=== PATIENT | female | born 1940 | race Hispanic/Latino ===

== ENCOUNTER 2019-01-10 00:42 | Inpatient (IN) | payer MEDICARE, OTHER ==
[2019-01-10] VITALS (8 sets, daily range): BP systolic 123–145; BP diastolic 57–65
[~2019-01-10] VITALS: Ht 154.9 cm; Wt 128.4 kg
[~2019-01-10 00:42] MED LIST: AMITIZA24 MCG PO; ASPIR 8181 MG PO; BUPROPION HCL200 MG PO; BYSTOLIC5 MG PO; CILOSTAZOL100 MG PO; CIPROFLOXACIN750 MG PO; CITALOPRAM HBR20 MG PO; FLORASTOR250 MG PO; FUROSEMIDE40 MG PO; GABAPENTIN300 MG PO; HYDROCODON-ACE1 EAC9 PO; KLOR-CON 1010 MEQ PO; LEVOTHYROXINE150 MCG PO; MECLIZINE HCL25 MG PO; METAXALONE800 MG PO; METRONIDAZOLE250 MG PO; NORCO 10-325 T1 EACH PO; NORCO 10MG-325MG1 EA PO; PRAVASTATIN SOD20 MG PO; PROMETHAZINE12.5 M1 PO; SKELAXIN800 MG PO; ULTRAM 50MG50 MG PO
--- OUTSIDE RECORDS SUMMARY | 2019-01-10 00:45 | XMS REPORT ---
Author Author [facility] Address Unknown Phone Unavailable Care Team Providers Care Automatic Thread Winder Name Role Phone Unavailable Unavailable Payers Payer Name Policy Type Policy Number Effective Date Expiration Date Problems This patient has no known problems. Allergies, Adverse Reactions, Alerts Allergy Name Allergy Type Status Severity Reaction(s) Onset Date Inactive Date Treating Clinician Comments meperidine HCl DA Active U 2013-01-17 00:00:00 Penicillins DA Active U 2013-01-17 00:00:00 morphine DA Active OK 2013-01-17 00:00:00 Medications This patient has no known medications.
[2019-01-10] MEDS ORDERED: ALBUTEROL SULF 0.083% NEB SOLN 3 ML NEB NEB STA (00:50)
[2019-01-10] MEDS ORDERED: ALBUTEROL SULF 0.083% NEB SOLN 3 ML NEB ONE (00:57)
[2019-01-10] MEDS ORDERED: IPRATROPIUM BROMIDE 0.02% 2.5 ML NEB ONE (00:58)
[2019-01-10] MEDS ORDERED: IPRATROPIUM BROMIDE 0.02% 2.5 ML NEB NEB ONE (01:00)
[2019-01-10] MEDS ORDERED: METHYLPREDNISOLONE SOD SUCC 125 MG/2ML VIAL IV ONE (01:00)
[2019-01-10 01:32] LABS: BASOPHILS % 0.1 % (0.0-1.0); HEMATOCRIT 33.8 % (34.2-44.1); HEMOGLOBIN 10.8 g/dL (12.0-16.0); LYMPHOCYTES # (AUTO) 0.7 (1.0-3.2); LYMPHOCYTES % 9.6 % (18.0-39.1); MEAN CORPUSCULAR HEMOGLOBIN 30.9 pg (28-32); MEAN CORPUSCULAR VOLUME 96.6 fL (81-99); MONOCYTES # (AUTO) 0.2 (0.2-0.8); MONOCYTES % 2.8 % (4.4-11.3); NEUTROPHILS # (AUTO) 6.6 (2.1-6.9); NEUTROPHILS % 86.7 % (38.7-80.0); PLATELET COUNT 250 x10e3/uL (140-360); RED CELL DISTRIBUTION WIDTH 13.2 % (11.7-14.4)
[2019-01-10 01:47] LABS: ALANINE AMINOTRANSFERASE 19 IU/L (0-55); ALBUMIN 2.8 g/dL (3.5-5.0); ALBUMIN/GLOBULIN RATIO 0.7 (0.8-2.0); ALKALINE PHOSPHATASE 112 IU/L (40-150); BLOOD UREA NITROGEN 19 mg/dL (7-26); BUN/CREATININE RATIO 16 (6-25); CALCIUM 9.5 mg/dL (8.4-10.2); CARBON DIOXIDE 29 mmol/L (22-29); CHLORIDE 99 mmol/L (98-107); CREATINE KINASE 190 IU/L (29-168); CREATININE, SERUM 1.16 mg/dL (0.57-1.11); EST GLOMERULAR FILTRATION RATE 45 ML/MIN (60-); GLUCOSE 220 mg/dL (74-118); SODIUM 137 mmol/L (136-145)
--- NOTE | 2019-01-10 01:50 | Diagnostic Imaging Report ---
EXAMINATION: CHEST SINGLE (PORTABLE) INDICATION: ^sob ^[id number] ^0110 ^Y COMPARISON: None FINDINGS: AP view TUBES and LINES: None. LUNGS: Limited by body habitus and low lung volumes. Mildly prominent interstitial lung markings. PLEURA: No significant pleural effusion or pneumothorax. HEART AND MEDIASTINUM: The cardiac silhouette is enlarged on this AP view. BONES AND SOFT TISSUES: No acute osseous lesion. Right humeral head anchor screws. Soft tissues are unremarkable. UPPER ABDOMEN: No free air under the diaphragm. IMPRESSION: Limited as above. Mildly prominent interstitial lung markings, accentuated by lower volumes, suggestive of mild interstitial edema. Signed by: Dr. Sukhi Peterson MD on 01/10/2019 1:47 AM
--- NOTE | 2019-01-10 03:10 | Diagnostic Imaging Report ---
EXAM: CT Chest WITHOUT contrast INDICATION: ^EVAL FRO PULMONARY EDEMA ^[id number] ^0220 ^Y COMPARISON: Same day chest x-ray TECHNIQUE: Chest was scanned utilizing a multidetector helical scanner from the lung apex through the level of the adrenal glands without administration of IV contrast. Absence of intravenous contrast decreases sensitivity for detection of lymphadenopathy and vascular pathology. Coronal and sagittal reformations were obtained. Routine protocol was performed. IV CONTRAST: None COMPLICATIONS: None RADIATION DOSE: Total DLP: 485.28 mGy*cm Estimated effective dose: (DLP x 0.014 x size factor) mSv CTDIvol has been reviewed. It is below the limits set by the Radiation Protocol Committee (RPC). FINDINGS: LINES/ TUBES: None. LUNGS AND AIRWAYS: Small multifocal bilateral upper lobe airspace opacities, right greater than left. Mild vascular congestion. Mild bibasilar consolidations. Airways are normal. PLEURA: Trace right pleural effusion. HEART AND MEDIASTINUM: The thyroid gland is normal. No mediastinal, hilar or axillary lymphadenopathy. The heart is borderline in size.. There is no pericardial effusion. Main pulmonary artery measures 2.5 cm posterior cerebral pulmonary hypertension. Coronary artery calcifications with stents in place. UPPER ABDOMEN: Small hiatal hernia. Atrophic pancreas. BONES: Advanced degenerative changes of the right shoulder with right humeral head anchor screws in place. Degenerative changes of thoracic spine. SOFT TISSUES: Unremarkable. IMPRESSION: Small bilateral upper lobe patchy airspace opacities, right greater than left, concerning for multifocal developing pneumonia. Mild pulmonary vascular congestion. Enlarged main pulmonary artery. Trace right pleural effusion. Bibasilar mild consolidations, likely atelectasis. Underlying pneumonia cannot be entirely excluded. Signed by: Dr. Sukhi Peterson MD on 01/10/2019 3:07 AM
[2019-01-10] MEDS: ALBUTEROL SULF 0.083% NEB SOLN 3 ML NEB NEB SCH ×6 (03:30→23:30)
[2019-01-10] MEDS ORDERED: DEXTROSE 50% SYRINGE 50 ML IV PRN (03:30)
[2019-01-10] MEDS: AZITHROMYCIN 500MG/NS 250 ML 250 ML IV SCH (03:30)
[2019-01-10] MEDS: CEFTRIAXONE SOD 1 GM/NS 50 ML 50 ML IV SCH (04:19)
[2019-01-10] MEDS ORDERED: IPRATROPIUM BROMIDE 0.02% 2.5 ML NEB NEB SCH (06:00)
[2019-01-10] MEDS: SODIUM CHLORIDE 0.9% 1000ML 1,000 ML IV SCH ×2 (06:00→12:52)
--- NOTE | 2019-01-10 06:10 | NUR ---
Patient received via stretcher from ER. AAO x 4. Patient had no complaints of pain except coughing occasionally. Respiration even and non-labored. Admission history obtained. Initial physical assessment performed. IVF infusing at 125 cc/hr. Patient oriented to room, call light and plan of care. Fall precautions implemented. Patient instructed to call for assistance when needed. Call light within reach.
--- NOTE | 2019-01-10 06:24 | NUR ---
Dr. Trina Rivera paged regarding "Routine Consult". Reason: Multifocal Pneumonia. Awaiting call back.
--- NOTE | 2019-01-10 07:00 | NUR ---
BEDSIDE SHIFT REPORT FROM NIGHT RN. PT DENIES NEEDS AT THIS TIME.
[2019-01-10] MEDS ORDERED: FOLGARD TABLET1 EAC1 PO (07:21)
[2019-01-10] MEDS ORDERED: MYRBETRIQ50 MG PO (07:21)
[2019-01-10] MEDS ORDERED: LOSARTAN POTAS100 MG PO (07:21)
[2019-01-10] MEDS: INSULIN REGULAR, HUMAN 100 UNIT/1 ML 3ML VIAL SQ SCH ×4 (08:18→19:53)
[2019-01-10 09:44] LABS: CREATINE KINASE MB 1.8 ng/mL (0-5.0)
[2019-01-10 10:00] LABS: FREE THYROXINE INDEX 1.9182 (1.4-3.8); THYROID STIMULATING HORMONE 0.731 uIU/mL (0.350-4.940)
[2019-01-10] MEDS: TRAMADOL/APAP 37.5MG-325MG TAB PO PRN (10:21)
[2019-01-10] MEDS: IPRATROPIUM BROMIDE 0.02% 2.5 ML NEB NEB SCH ×4 (10:30→23:00)
[2019-01-10] MEDS: GABAPENTIN 300 MG CAP PO SCH ×2 (11:48→20:33)
[2019-01-10] MEDS: ASPIRIN 81 MG CHEW TAB PO SCH (11:48)
[2019-01-10] MEDS: CITALOPRAM HYDROBROMIDE 20 MG TAB PO SCH (11:48)
[2019-01-10] MEDS: PREDNISONE 20 MG TAB PO SCH ×2 (11:48→17:24)
--- NOTE | 2019-01-10 16:22 | Diagnostic Imaging Report ---
EXAM: US ABDOMEN COMPLETE DATE: 01/10/2019 12:00 AM INDICATION: Abdominal pain COMPARISON: None TECHNIQUE: Transverse and longitudinal ruano scale and color doppler sonographic images of the upper abdomen were obtained. FINDINGS: There is no evidence of fluid or masses seen in the area of clinical concern in the right lower quadrant. LIVER 13.9 cm in the right midclavicular line. Normal echogenicity of the liver with normal contour, no masses. SPLEEN 10.8 cm in maximum diameter. Normal echogenicity, no masses. GALLBLADDER Status post cholecystectomy. BILE DUCTS No intra nor extra-hepatic biliary dilation. Common bile duct measures 3 mm PANCREAS: Not well visualized due to overlying bowel gas. RIGHT KIDNEY: 10.8 cm Echogenicity: Normal Collecting System: No hydronephrosis Stones: None Cyst/Mass: None LEFT KIDNEY: 9.9 cm Echogenicity: Normal Collecting System: No hydronephrosis Stones: None Cyst/Mass: None VESSELS: Aorta: Not well-visualized due to overlying bowel gas. Inferior Vena Cava: Visualized portions are normal Main Portal Vein: 0.9 cm, normal size with hepatopetal flow. FREE FLUID: None IMPRESSION: Status post cholecystectomy. No renal calculi or hydronephrosis. Signed by: Caren Mccloud MD on 01/10/2019 4:19 PM
--- NOTE | 2019-01-10 16:24 | Diagnostic Imaging Report ---
Exam: Pelvic ultrasound. History: Abdominal pain Comparison: Abdominal ultrasound of the same day. Findings/Impression: Transabdominal grayscale and color Doppler pelvic ultrasound. Status post hysterectomy. No remarkable findings in the right or left adnexa. Signed by: Caren Mccloud MD on 01/10/2019 4:21 PM
--- NOTE | 2019-01-10 16:55 | Consultation ---
DATE OF CONSULTATION: Pulmonary Consultation This is a patient of Dr. Tomás Bonds and Dr. Tha Bradford. HISTORY OF PRESENT ILLNESS: This is a 78-year-old woman with a history of asthma in 1996, which resolved until current illness which began 7 days ago with cough productive of green sputum. History of remote uterine cancer. History of pain under the left ribs when she coughs and tenderness presumed to be a fracture. ALLERGIES: CODEINE AND MORPHINE. MEDICATIONS: She cannot recall, but according to record include: 1. Aspirin. 2. Pletal. 3. Losartan. 4. Celexa. 5. Lasix. 6. Neurontin. 7. Pravachol. 8. Levoxyl. 9. Lasix. 10. Potassium. 11. Vitamin D. PAST SURGICAL HISTORY: She has had hysterectomy for cancer, shoulder replacement, knee replacements, hysterectomy and gallbladder surgery. 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 Nonsmoker. No alcohol. Born in [place], [place]. FAMILY HISTORY: Positive for heart failure and sick sinus syndrome. PHYSICAL EXAMINATION: GENERAL: She is a moderately obese white female in no acute distress, complaining of pain at the left rib. VITAL SIGNS: Temperature 98.6, pulse 88, blood pressure 123/57. HEAD: Normocephalic and atraumatic. NECK: Trachea midline, wheezing all lung golden. HEART: Regular rhythm. ABDOMEN: Nontender. CHEST: She has tender rib 11th rib, left chest wall. IMPRESSION: 1. Acute community-acquired pneumonia. 2. Cough. 3. Asthma. 4. Fractured rib. PLAN: Therapy of pneumonia and asthma. Bronchodilators, corticosteroids, and antibiotic therapy. Thank you for this kind referral. MD SANDY Morse/GRAYSON /[id number]
[2019-01-10] MEDS: CILOSTAZOL 100 MG TAB PO SCH (17:24)
--- NOTE | 2019-01-10 18:15 | History and Physical ---
Ms. Vu is a pleasant 78-year-old woman, who presented to the emergency room in the evening of the with a complaint of cough and sputum production. HISTORY OF PRESENT ILLNESS: The patient reports that she has been ill for a few days and visited with Dr. Bradford, in his office on the where he gave her injections probably an antibiotic and steroid, but evidently insurances were told refused to pay for breathing treatments. PAST MEDICAL HISTORY: Significant for adult asthma. She also has type 2 adult onset diabetes. She has been told that she has anemia in the past, but evidently told that she needed to take vitamin B12. PAST SURGICAL HISTORY: Includes bilateral knee replacements and pelvic repair. She had hysterectomy for uterine cancer by her report. HOME MEDICATIONS: Please see the chart. PERSONAL AND SOCIAL HISTORY: She does not smoke or drink. REVIEW OF SYSTEMS: CARDIAC: She does not know of any cardiac problem. No chest pains. Currently, her left side hurts to cough. PHYSICAL EXAMINATION: GENERAL: At this time shows a pleasant, obese woman, who is about 5 feet 1 inch tall and weighing 284 pounds. VITAL SIGNS: Blood pressure 123/57, pulse 88 and regular. HEAD, EYES, EARS, NOSE, AND THROAT: Unremarkable. NECK: Thick. THORAX: Heart sounds S1 and S2 are equal. No distinct murmur. LUNGS: Have faint rhonchi and wheezing. ABDOMEN: Markedly protuberant. Normal bowel sounds. Nontender. EXTREMITIES: No cyanosis, clubbing, or edema. LABORATORY DATA: Chest x-ray and CAT scan of the chest suggest possibility of multifocal pneumonia with bilateral upper lobe opacities. BNP is 15, hemoglobin 10.8, serum iron 33, saturation 10%, and glucose 220. ASSESSMENT: 1. Pneumonia. 2. Type 2 adult onset diabetes. 3. Anemia. PLAN: Broad-spectrum antibiotics with bronchodilators. We will ask for consultation with Pulmonary, Dr. Rivera and also help for the anemia from Dr. Hernandez. MD MARGAUX Abreu/PRABHAL /[id number] cc: Tomas A MaryMD Tha avendaño MD David Stein, MD
[2019-01-10] MEDS: BUDESONIDE/FORMOTEROL 160/4.5MCG INHALER INH SCH (19:00)
[2019-01-10 19:06] LABS: CREATINE KINASE MB 1.8 ng/mL (0-5.0)
[2019-01-10] MEDS: PRAVASTATIN 20 MG TAB PO SCH (20:33)
[2019-01-11] VITALS (8 sets, daily range): BP systolic 131–160; BP diastolic 65–76
[2019-01-11] MEDS: TRAMADOL/APAP 37.5MG-325MG TAB PO PRN ×3 (00:38→20:41)
[2019-01-11] MEDS: SODIUM CHLORIDE 0.9% 1000ML 1,000 ML IV SCH ×2 (02:12→15:32)
[2019-01-11] MEDS: IPRATROPIUM BROMIDE 0.02% 2.5 ML NEB NEB SCH ×6 (03:00→23:20)
[2019-01-11] MEDS: ALBUTEROL SULF 0.083% NEB SOLN 3 ML NEB NEB SCH ×6 (03:30→23:20)
[2019-01-11] MEDS: AZITHROMYCIN 500MG/NS 250 ML 250 ML IV SCH (03:35)
--- NOTE | 2019-01-11 04:22 | NUR ---
PATIENT COMPLAIN OF LEFT ABDOMINAL PAIN. PAIN MEDICATION IS STILL NOT DUE. DR. SINGH NOTIFIED. NEW ORDERS RECEIVED.
[2019-01-11] MEDS: CEFTRIAXONE SOD 1 GM/NS 50 ML 50 ML IV SCH (04:24)
[2019-01-11] MEDS: ACETAMINOPHEN 325 MG TAB PO PRN ×2 (04:47→23:40)
[2019-01-11 06:01] LABS: BASOPHILS % 0.1 % (0.0-1.0); HEMATOCRIT 33.3 % (34.2-44.1); HEMOGLOBIN 10.5 g/dL (12.0-16.0); LYMPHOCYTES # (AUTO) 0.9 (1.0-3.2); LYMPHOCYTES % 9.7 % (18.0-39.1); MEAN CORPUSCULAR HGB CONC 31.5 g/dL (31-35); MEAN CORPUSCULAR VOLUME 98.2 fL (81-99); MONOCYTES # (AUTO) 0.4 (0.2-0.8); MONOCYTES % 4.2 % (4.4-11.3); NEUTROPHILS % 85.5 % (38.7-80.0); PLATELET COUNT 254 x10e3/uL (140-360); RED BLOOD COUNT 3.39 x10e6/uL (3.6-5.1); RED CELL DISTRIBUTION WIDTH 13.4 % (11.7-14.4)
[2019-01-11] MEDS: LEVOTHYROXINE SODIUM 125 MCG TAB PO SCH (06:23)
[2019-01-11 06:28] LABS: ALBUMIN 2.9 g/dL (3.5-5.0); ALBUMIN/GLOBULIN RATIO 0.7 (0.8-2.0); ANION GAP 13.3 mmol/L (8-16); CALCIUM 9.4 mg/dL (8.4-10.2); CREATININE, SERUM 1.04 mg/dL (0.57-1.11); POTASSIUM 4.3 mmol/L (3.5-5.1)
--- NOTE | 2019-01-11 07:00 | NUR ---
BEDSIDE SHIFT REPORT FROM NIGHT RN. PT DENIES NEEDS AT THIS TIME.
[2019-01-11] MEDS: BUDESONIDE/FORMOTEROL 160/4.5MCG INHALER INH SCH ×2 (07:25→19:50)
[2019-01-11] MEDS: ASPIRIN 81 MG CHEW TAB PO SCH (08:13)
[2019-01-11] MEDS: CITALOPRAM HYDROBROMIDE 20 MG TAB PO SCH (08:13)
[2019-01-11] MEDS: LOSARTAN POTASSIUM 100 MG TAB PO SCH (08:14)
[2019-01-11] MEDS: GABAPENTIN 300 MG CAP PO SCH ×2 (08:14→20:41)
[2019-01-11] MEDS: BUPROPION HCL 200 MG PO SCH (08:14)
[2019-01-11] MEDS: CILOSTAZOL 100 MG TAB PO SCH ×2 (08:14→17:54)
[2019-01-11] MEDS: PREDNISONE 20 MG TAB PO SCH ×2 (08:14→17:54)
[2019-01-11] MEDS: INSULIN REGULAR, HUMAN 100 UNIT/1 ML 3ML VIAL SQ SCH ×4 (08:15→20:45)
[2019-01-11] MEDS ORDERED: LEVOTHYROXINE SODIUM 0.125 MCG PO SCH (09:00)
[2019-01-11] MEDS ORDERED: VANCOMYCIN 1GM/NS 250 ML 250 ML IV ONE (13:45)
[2019-01-11] MEDS: VANCOMYCIN 1GM/NS 250 ML 250 ML IV SCH (16:00)
[2019-01-11] MEDS: PRAVASTATIN 20 MG TAB PO SCH (20:41)
--- NOTE | 2019-01-11 22:17 | Consultation ---
DATE OF CONSULTATION: REASON FOR CONSULTATION: Bacteremia, pneumonia. HISTORY OF PRESENT ILLNESS: This patient, who is a very pleasant 78-year-old white female, history of obesity, history of diabetes mellitus, hypertension, and hypothyroidism. The patient comes in with one week of fever, chills, productive cough, getting progressively worse. She took some oral antibiotic as outpatient without any improvement, so she came here. The patient was admitted. Her blood cultures, gram-positive cocci, so I am asked to see her. She already seen by Pulmonary. PAST MEDICAL HISTORY: She had uterine cancer status post hysterectomy, osteoarthritis, shoulder replacement, total knee replacement, hysterectomy, cholecystectomy, morbidly obese patient, asthma, diabetes mellitus, and anemia of chronic disease. PAST SURGICAL HISTORY: As above. ALLERGIES: PENICILLIN AND CODEINE. SOCIAL HISTORY: No smoking, drug abuse, or alcohol abuse. FAMILY HISTORY: Hypertension and diabetes. LABORATORY DATA: White count 7.58 and hemoglobin 10.8. Her sodium 140, potassium 4.3, and creatinine 1.40. Her CT of the chest showed she had bilateral upper lobe patchy pneumonia, right greater than left, multifocal developing pneumonia. MEDICATION LIST: She is on insulin, Atrovent, Cozaar, Neurontin, prednisone, Celexa, levothyroxine, ceftriaxone, and azithromycin. REVIEW OF SYSTEMS: Besides the cough, fever, chills, not feeling well and chronic aches and pain in her knees, she denies any pain. PHYSICAL EXAMINATION: GENERAL: Alert and oriented. Does not seem to be in acute distress. VITAL SIGNS: Stable, currently afebrile. HEENT: Not icteric. NECK: Supple. CHEST: Few crackles at the bases. COR: S1 and S2. ABDOMEN: Soft and obese. EXTREMITIES: No edema. IMPRESSION: 1. Community-acquired pneumonia, severe. 2. Multifocal pneumonia. 3. Bacteremia gram-positive cocci could be the pathogen of the pneumonia versus contamination. 4. Morbidly obese patient. 5. History of hypertension, history of diabetes. Agree with Rocephin and azithromycin. We will add vancomycin until we get identification of the bacteria. We will follow with you. Further recommendations pending what kind of bacteria we have in the blood. Continue with above treatment. 6. Asthma from obesity from diabetes mellitus. 7. Concern about congestive heart failure component. Cardiology is following. Pulmonary is following. MD MAYTE Noel /[id number]
[2019-01-12] VITALS (8 sets, daily range): BP systolic 127–170; BP diastolic 60–74
[2019-01-12] MEDS: CEFTRIAXONE SOD 1 GM/NS 50 ML 50 ML IV SCH (02:55)
[2019-01-12] MEDS: TRAMADOL/APAP 37.5MG-325MG TAB PO PRN (03:05)
[2019-01-12] MEDS: IPRATROPIUM BROMIDE 0.02% 2.5 ML NEB NEB SCH ×6 (03:15→23:09)
[2019-01-12] MEDS: ALBUTEROL SULF 0.083% NEB SOLN 3 ML NEB NEB SCH ×6 (03:15→23:09)
[2019-01-12] MEDS: AZITHROMYCIN 500MG/NS 250 ML 250 ML IV SCH (03:36)
[2019-01-12] MEDS: SODIUM CHLORIDE 0.9% 1000ML 1,000 ML IV SCH ×3 (03:38→18:00)
[2019-01-12] MEDS: VANCOMYCIN 1GM/NS 250 ML 250 ML IV SCH ×2 (04:27→16:50)
[2019-01-12] MEDS: LEVOTHYROXINE SODIUM 125 MCG TAB PO SCH (05:22)
--- NOTE | 2019-01-12 07:00 | NUR ---
BEDSIDE SHIFT REPORT FROM NIGHT RN. PT DENIES NEEDS AT THIS TIME.
[2019-01-12] MEDS: BUDESONIDE/FORMOTEROL 160/4.5MCG INHALER INH SCH ×2 (07:11→19:35)
[2019-01-12] MEDS: INSULIN REGULAR, HUMAN 100 UNIT/1 ML 3ML VIAL SQ SCH ×4 (08:24→21:13)
[2019-01-12] MEDS: ASPIRIN 81 MG CHEW TAB PO SCH (08:58)
[2019-01-12] MEDS: CITALOPRAM HYDROBROMIDE 20 MG TAB PO SCH (08:58)
[2019-01-12] MEDS: BUPROPION HCL 200 MG PO SCH (08:59)
[2019-01-12] MEDS: LOSARTAN POTASSIUM 100 MG TAB PO SCH (08:59)
[2019-01-12] MEDS: GABAPENTIN 300 MG CAP PO SCH ×2 (08:59→21:13)
[2019-01-12] MEDS: PREDNISONE 20 MG TAB PO SCH ×2 (08:59→17:04)
[2019-01-12] MEDS: CILOSTAZOL 100 MG TAB PO SCH ×2 (08:59→16:51)
[2019-01-12] MEDS: BENZONATATE 100 MG CAP PO PRN (13:18)
[2019-01-12] MEDS: MAGNESIUM HYDROXIDE 30 ML UDC PO PRN (13:39)
--- NOTE | 2019-01-12 16:05 | NUR ---
Visit made by the Spiritual Care Department Pastoral Visitor, Wilfredo Arcos. PV provided pastoral presence, hospitality, and supportive listening. Pastoral Visitor informed pt/family of the scope of [employer] and availability. YUVAL ALEXANDER Forming Machine Upkeep Mechanic Helper Spiritual Care Department O: [phone] Pager: [phone] ([phone] number calling from)
[2019-01-12] MEDS: DOCUSATE SODIUM 100 MG CAP PO SCH (16:51)
[2019-01-12] MEDS ORDERED: CITRATE OF MAGNESIA 300ML BOTTLE PO PRN (17:00)
[2019-01-12] MEDS: PRAVASTATIN 20 MG TAB PO SCH (21:13)
[2019-01-13] VITALS (8 sets, daily range): BP systolic 126–154; BP diastolic 62–71
[2019-01-13] MEDS: ACETAMINOPHEN 325 MG TAB PO PRN (00:02)
[2019-01-13] MEDS: BENZONATATE 100 MG CAP PO PRN ×3 (00:02→22:03)
[2019-01-13] MEDS: CEFTRIAXONE SOD 1 GM/NS 50 ML 50 ML IV SCH (02:57)
[2019-01-13] MEDS: ALBUTEROL SULF 0.083% NEB SOLN 3 ML NEB NEB SCH ×5 (03:15→23:25)
[2019-01-13] MEDS: IPRATROPIUM BROMIDE 0.02% 2.5 ML NEB NEB SCH ×6 (03:15→23:25)
[2019-01-13] MEDS: AZITHROMYCIN 500MG/NS 250 ML 250 ML IV SCH (03:31)
[2019-01-13] MEDS: VANCOMYCIN 1GM/NS 250 ML 250 ML IV SCH ×2 (04:30→17:15)
[2019-01-13] MEDS: LEVOTHYROXINE SODIUM 125 MCG TAB PO SCH (05:11)
--- NOTE | 2019-01-13 07:00 | NUR ---
BEDSIDE SHIFT REPORT RECEIVED FROM THE SENIOR MOBILE DEVELOPER RN. EDUCATED PT ABOUT FALL PRECAUTIONS. SIDE RAILS X 2. CALL LIGHT WITH IN EASY REACH. INSTRUCTED PT TO USE CALL LIGHT FOR ALL NEEDS. PT VERBALIZED UNDERSTANDING. PT DENIES NEEDS AT THIS TIME.
[2019-01-13] MEDS: BUDESONIDE/FORMOTEROL 160/4.5MCG INHALER INH SCH ×2 (07:10→19:52)
[2019-01-13] MEDS: INSULIN REGULAR, HUMAN 100 UNIT/1 ML 3ML VIAL SQ SCH ×4 (07:30→21:00)
[2019-01-13] MEDS: SODIUM CHLORIDE 0.9% 1000ML 1,000 ML IV SCH ×2 (07:32→22:03)
[2019-01-13] MEDS: CITALOPRAM HYDROBROMIDE 20 MG TAB PO SCH (08:19)
[2019-01-13] MEDS: ASPIRIN 81 MG CHEW TAB PO SCH (08:19)
[2019-01-13] MEDS: GABAPENTIN 300 MG CAP PO SCH ×2 (08:20→21:00)
[2019-01-13] MEDS: LOSARTAN POTASSIUM 100 MG TAB PO SCH (08:20)
[2019-01-13] MEDS: DOCUSATE SODIUM 100 MG CAP PO SCH ×2 (08:20→17:15)
[2019-01-13] MEDS: CILOSTAZOL 100 MG TAB PO SCH ×2 (08:21→17:15)
[2019-01-13] MEDS: PREDNISONE 20 MG TAB PO SCH ×2 (08:21→17:15)
[2019-01-13] MEDS: BUPROPION HCL 200 MG PO SCH (08:23)
[2019-01-13] MEDS: GUAIFENESIN 200 MG/10 ML UDC PO PRN (08:31)
[2019-01-13] MEDS: MAGNESIUM HYDROXIDE 30 ML UDC PO PRN (08:31)
--- NOTE | 2019-01-13 16:34 | Progress Note ---
DATE: SUBJECTIVE: Ms. Vu is feeling better. No complaint. REVIEW OF SYSTEMS: HEENT: Negative. PULMONARY: Negative. CARDIAC: Negative. PHYSICAL EXAMINATION: GENERAL: She is currently alert, oriented, does not seem in acute distress. VITAL SIGNS: Stable, currently afebrile. The patient is morbidly obese. CHEST: Clear bilateral. COR: S1, S2. No S3, S4, or murmur. ABDOMEN: Soft. IMPRESSION AND PLAN: Pneumonia, community acquired, severe, clinically better, can switch to oral antibiotic in the morning. We will give her oral Levaquin 750 p.o. daily for 5 days. Follow up as an outpatient. MD ISAK Noel/GRAYSON /[id number]
--- NOTE | 2019-01-13 19:00 | NUR ---
BEDSIDE SHIFT REPORT GIVEN TO THE CREDIT COMPLIANCE OFFICER RN. PT DENIES NEEDS AT THIS TIME.
[2019-01-13] MEDS: PRAVASTATIN 20 MG TAB PO SCH (21:00)
[2019-01-14] VITALS (8 sets, daily range): BP systolic 135–172; BP diastolic 58–70
[2019-01-14] MEDS: CEFTRIAXONE SOD 1 GM/NS 50 ML 50 ML IV SCH (02:53)
[2019-01-14] MEDS: ALBUTEROL SULF 0.083% NEB SOLN 3 ML NEB NEB SCH ×6 (03:22→23:20)
[2019-01-14] MEDS: IPRATROPIUM BROMIDE 0.02% 2.5 ML NEB NEB SCH ×6 (03:22→23:20)
[2019-01-14] MEDS: AZITHROMYCIN 500MG/NS 250 ML 250 ML IV SCH (04:10)
[2019-01-14] MEDS: BENZONATATE 100 MG CAP PO PRN (04:46)
[2019-01-14] MEDS: VANCOMYCIN 1GM/NS 250 ML 250 ML IV SCH ×2 (05:51→15:40)
[2019-01-14] MEDS: LEVOTHYROXINE SODIUM 125 MCG TAB PO SCH (05:54)
[2019-01-14] MEDS: BUDESONIDE/FORMOTEROL 160/4.5MCG INHALER INH SCH ×2 (07:00→20:05)
--- NOTE | 2019-01-14 07:00 | NUR ---
BEDSIDE SHIFT REPORT RECEIVED FROM THE BILINGUAL LOAN PROCESSOR RN. EDUCATED PT ABOUT FALL PRECAUTIONS. SIDE RAILS X 2. CALL LIGHT WITH IN EASY REACH. INSTRUCTED PT TO USE CALL LIGHT FOR ALL NEEDS. PT VERBALIZED UNDERSTANDING. PT DENIES NEEDS AT THIS TIME.
[2019-01-14] MEDS: INSULIN REGULAR, HUMAN 100 UNIT/1 ML 3ML VIAL SQ SCH ×4 (08:30→21:12)
[2019-01-14] MEDS: CILOSTAZOL 100 MG TAB PO SCH ×2 (08:36→16:45)
[2019-01-14] MEDS: LOSARTAN POTASSIUM 100 MG TAB PO SCH (08:36)
[2019-01-14] MEDS: ASPIRIN 81 MG CHEW TAB PO SCH (08:36)
[2019-01-14] MEDS: CITALOPRAM HYDROBROMIDE 20 MG TAB PO SCH (08:36)
[2019-01-14] MEDS: GABAPENTIN 300 MG CAP PO SCH ×2 (08:36→21:12)
[2019-01-14] MEDS: BUPROPION HCL 200 MG PO SCH (08:36)
[2019-01-14] MEDS: DOCUSATE SODIUM 100 MG CAP PO SCH ×2 (08:36→16:45)
[2019-01-14] MEDS: SODIUM CHLORIDE 0.9% 1000ML 1,000 ML IV SCH (08:37)
[2019-01-14] MEDS: PREDNISONE 20 MG TAB PO SCH ×2 (08:37→16:45)
--- NOTE | 2019-01-14 19:00 | NUR ---
BEDSIDE SHIFT REPORT GIVEN TO THE GREEN CHAIN WORKER RN. PT DENIED FURTHER NEEDS
[2019-01-14] MEDS: PRAVASTATIN 20 MG TAB PO SCH (21:12)
[2019-01-14] MEDS: GUAIFENESIN 200 MG/10 ML UDC PO PRN (21:54)
[2019-01-15] VITALS (8 sets, daily range): BP systolic 129–150; BP diastolic 60–71
[2019-01-15] MEDS: ALBUTEROL SULF 0.083% NEB SOLN 3 ML NEB NEB SCH ×6 (03:30→23:38)
[2019-01-15] MEDS: CEFTRIAXONE SOD 1 GM/NS 50 ML 50 ML IV SCH (03:30)
[2019-01-15] MEDS: IPRATROPIUM BROMIDE 0.02% 2.5 ML NEB NEB SCH ×6 (03:30→23:38)
[2019-01-15] MEDS: VANCOMYCIN 1GM/NS 250 ML 250 ML IV SCH (04:00)
[2019-01-15] MEDS: AZITHROMYCIN 500MG/NS 250 ML 250 ML IV SCH (04:20)
[2019-01-15] MEDS: SODIUM CHLORIDE 0.9% 1000ML 1,000 ML IV SCH (04:21)
[2019-01-15] MEDS: LEVOTHYROXINE SODIUM 125 MCG TAB PO SCH (05:17)
--- NOTE | 2019-01-15 06:09 | NUR ---
Dr. Moe called and message left with answering service regarding vanc trough
[2019-01-15] MEDS: BUDESONIDE/FORMOTEROL 160/4.5MCG INHALER INH SCH ×2 (07:25→20:20)
[2019-01-15] MEDS: INSULIN REGULAR, HUMAN 100 UNIT/1 ML 3ML VIAL SQ SCH ×4 (07:30→21:09)
[2019-01-15] MEDS: ASPIRIN 81 MG CHEW TAB PO SCH (08:35)
[2019-01-15] MEDS: DOCUSATE SODIUM 100 MG CAP PO SCH ×2 (08:35→17:00)
[2019-01-15] MEDS: LOSARTAN POTASSIUM 100 MG TAB PO SCH (08:35)
[2019-01-15] MEDS: CITALOPRAM HYDROBROMIDE 20 MG TAB PO SCH (08:35)
[2019-01-15] MEDS: PREDNISONE 20 MG TAB PO SCH (08:36)
[2019-01-15] MEDS: CILOSTAZOL 100 MG TAB PO SCH ×2 (08:36→17:00)
[2019-01-15] MEDS: GABAPENTIN 300 MG CAP PO SCH ×2 (08:36→21:09)
[2019-01-15] MEDS: BUPROPION HCL 200 MG PO SCH (08:36)
--- NOTE | 2019-01-15 11:30 | NUR ---
Spoke with Dr. Bonds regarding dc plan. States pt still had crackles today. Will discharge once cleared by pulmonology. Dr. Fagan still to round today.
--- NOTE | 2019-01-15 12:15 | NUR ---
IMM letter delivered and explained to pt. She verbalized understanding. Signed copy placed in chart. Copy to pt's transition of care folder. Business card given to pt. CM contact information written on board.
[2019-01-15] MEDS ORDERED: VANCOMYCIN 1GM/NS 250 ML 250 ML IV SCH ×3 (16:00)
[2019-01-15] MEDS ORDERED: VANCOMYCIN HCL 1.25 GM in SODIUM CHLORIDE 0.9% 250ML 300 ML IV SCH (16:00)
[2019-01-15] MEDS ORDERED: VANCOMYCIN HCL 1.25 GM in SODIUM CHLORIDE 0.9% 250ML 250 ML IV SCH (16:00)
--- NOTE | 2019-01-15 16:00 | NUR ---
Spoke to Dr. Fagan who states he wants to keep pt one more day for IV abx.
[2019-01-15] MEDS: PRAVASTATIN 20 MG TAB PO SCH (21:09)
[2019-01-16] VITALS: BP 131/60
[2019-01-16] MEDS: ALBUTEROL SULF 0.083% NEB SOLN 3 ML NEB NEB SCH ×3 (03:15→11:49)
[2019-01-16] MEDS: IPRATROPIUM BROMIDE 0.02% 2.5 ML NEB NEB SCH ×3 (03:15→11:49)
[2019-01-16 04:00] VITALS: BP 137/61
--- NOTE | 2019-01-16 04:20 | NUR ---
IV no longer patent, new 20g IV started to left hand
[2019-01-16] MEDS: CEFTRIAXONE SOD 1 GM/NS 50 ML 50 ML IV SCH (04:23)
[2019-01-16] MEDS: LEVOTHYROXINE SODIUM 125 MCG TAB PO SCH (06:27)
[2019-01-16] MEDS: BUDESONIDE/FORMOTEROL 160/4.5MCG INHALER INH SCH (07:15)
[2019-01-16] MEDS: INSULIN REGULAR, HUMAN 100 UNIT/1 ML 3ML VIAL SQ SCH ×2 (07:30→11:07)
[2019-01-16 07:43] VITALS: BP 178/77
[2019-01-16 07:48] VITALS: BP 178/77
[2019-01-16] MEDS: DOCUSATE SODIUM 100 MG CAP PO SCH (08:45)
[2019-01-16] MEDS: CITALOPRAM HYDROBROMIDE 20 MG TAB PO SCH (08:45)
[2019-01-16] MEDS: ASPIRIN 81 MG CHEW TAB PO SCH (08:45)
[2019-01-16] MEDS: PREDNISONE 20 MG TAB PO SCH (08:46)
[2019-01-16] MEDS: BUPROPION HCL 200 MG PO SCH (08:46)
[2019-01-16] MEDS: GABAPENTIN 300 MG CAP PO SCH (08:46)
[2019-01-16] MEDS: LOSARTAN POTASSIUM 100 MG TAB PO SCH (08:46)
[2019-01-16] MEDS: CILOSTAZOL 100 MG TAB PO SCH (08:46)
[2019-01-16 11:37] VITALS: BP 135/62
[2019-01-16] MEDS ORDERED: LEVAQUIN500 MG PO (13:31)
--- NOTE | 2019-01-16 14:05 | NUR ---
patient alert and oriented. discharge instructions given at this time, patient verbalized understanding. IV discontinued, catheter in tact and small dressing applied. patient to be wheeled out to personal auto for friend to drive home.
[2019-01-16] MEDS ORDERED: VANCOMYCIN HCL 1.25 GM in SODIUM CHLORIDE 0.9% 250ML 300 ML IV SCH (16:00)
--- NOTE | 2019-01-16 17:34 | Consultation ---
DATE OF CONSULTATION: 01/10/[address] Tomás Bonds. HISTORY OF PRESENT ILLNESS: Joy Vu is a 78-year-old female, who was referred to me for evaluation of anemia. No history of hematochezia, melena, hematuria, hematemesis, or hemoptysis. The patient presented with shortness of breath, subsequently was found to have multifocal pneumonia. SOCIAL HISTORY: Noncontributory. FAMILY HISTORY: Noncontributory. ALLERGIES: 1. CODEINE. 2. DEMEROL. 3. PENICILLIN. 4. MORPHINE. MEDICATIONS: At this time: 1. Albuterol. 2. Zithromax. 3. Ceftriaxone. 4. Sodium chloride. 5. Insulin. 6. Aspirin. 7. Budesonide. 8. Gabapentin. 9. Cilostazol. 10. Citalopram. 11. Tramadol. 12. Prednisone. 13. Pravastatin. 14. Synthroid. REVIEW OF SYSTEMS: HEENT: Normal. CARDIAC: History of hypertension and hyperlipidemia. RESPIRATORY: Multifocal bronchopneumonia. GI: Normal. : Normal. MUSCULOSKELETAL: Normal. SKIN: Normal. BREASTS: Normal. NEUROENDOCRINE: History of hypothyroidism and diabetes mellitus. PHYSICAL EXAMINATION: GENERAL: A moderately built female, in distress with shortness of breath. NECK: No palpable adenopathy. HEART: Within normal limits. LUNGS: Show diminished breath sounds at both bases. ABDOMEN: Obese. RECTAL AND VAGINAL: Deferred. CENTRAL NERVOUS SYSTEM: Essentially normal. EXTREMITIES: Essentially normal. LABORATORY DATA: Shows a hemoglobin of 10.8, hematocrit of 33.8, white count 7,580, and platelets are 250,000. Sodium 137, potassium 4.0, chloride 99, CO2 29, BUN 19, and creatinine 1.16. Bilirubin 0.2, SGOT 99, SGPT 99, and alkaline phosphatase 112. Chest x-ray shows bronchopneumonia and right-sided pleural effusion. IMPRESSION: 1. Anemia of chronic disease. 2. Compromised renal functions. 3. Hypoalbuminemia of 2.8. 4. 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 5. Multifocal bronchopneumonia. 6. Right-sided pleural effusion. PLAN, COMMENTS, AND SUGGESTIONS: Because of high immunoglobulins, I suggest quantitation of immunoglobulins to make sure she does not have multiple myeloma and immunoglobulins were done. The patient's IgG is 1259, within normal limits. IgA within normal limits at 351. IgM is slightly low at 110. This does not represent multiple myeloma. Thank you very much for allowing me to participate in management of this patient. The patient was given aggressive antibiotic therapy and is being discharged today. I will confine myself to Hematology only during this hospitalization. I will be more than happy to follow this patient, however, I am not on [employer] company. MD ANA Bolaños/GRAYSON /[id number]
--- NOTE | 2019-01-17 11:32 | Discharge Summary ---
HISTORY OF PRESENT ILLNESS: Ms. Vu is a pleasant but complex 78-year-old diabetic woman, who presented to the emergency room with complaint of fever, cough, and pleuritic discomfort. HOSPITAL COURSE: Initial evaluation suggests a multifocal pneumonia. She was started on broad-spectrum antibiotics and seen by Dr. Rivera. Her blood cultures were positive and she was seen by Dr. Moe and given vancomycin, azithromycin, and Rocephin. She was also markedly anemic and was seen by Dr. Hernandez and as her serum iron stores were very low she was given intravenous iron. She made slow progress with rhonchi, cough, wheezing. However, she made gradual progress and today is ambulating in the room and breathing better and resting at night. Echocardiogram showed normal left ventricular function, mild mitral regurgitation. Calculated right ventricular systolic pressure was elevated. Today, she is afebrile and more comfortable. She is discharged to home to resume her previous home medications and we will add Levaquin 500 mg daily for the next five days. She will follow up with Dr. Bradford for anemia and diabetes. She will see Dr. Rivera and Dr. Fagan in the office to make sure that her lungs get to be better without any prednisone on discharge. DISCHARGE DIAGNOSES: 1. Multifocal pneumonia. 2. Diabetes. 3. Obesity. 4. Iron deficiency anemia. MD MARGAUX Abreu/MODL /[id number] cc: MD Mendoza Bolaños MD Zaher Shebib, MD Ramon A Pineda, MD Muhammad Faisal, MD
== END 2019-01-16 14:05 | disposition home or self-care (01) | DRG 194 ==
LOC: ER 00:42 → ERHOLD 03:27 → MED/SURG2 05:12
PROVIDERS: ADMIT Internal Medicine Cardiovascular Disease; ATTEND Internal Medicine Cardiovascular Disease
DX: J18.9 Pneumonia, unspecified organism (principal); S22.32XA Fracture of one rib, left side, initial encounter for closed fracture; Z68.43 Body mass index [BMI] 50.0-59.9, adult; J90 Pleural effusion, not elsewhere classified; R09.02 Hypoxemia; D64.9 Anemia, unspecified; E11.9 Type 2 diabetes mellitus without complications; Z88.5 Allergy status to narcotic agent; Z88.0 Allergy status to penicillin; Z88.8 Allergy status to other drugs, medicaments and biological substances; Z96.653 Presence of artificial knee joint, bilateral; Z85.42 Personal history of malignant neoplasm of other parts of uterus; Z83.3 Family history of diabetes mellitus; Z82.49 Family history of ischemic heart disease and other diseases of the circulatory system; E03.9 Hypothyroidism, unspecified; I10 Essential (primary) hypertension; Z96.619 Presence of unspecified artificial shoulder joint; E66.01 Morbid (severe) obesity due to excess calories; D63.8 Anemia in other chronic diseases classified elsewhere; E88.09 Other disorders of plasma-protein metabolism, not elsewhere classified; R77.1 Abnormality of globulin; K59.00 Constipation, unspecified; I34.0 Nonrheumatic mitral (valve) insufficiency; D50.9 Iron deficiency anemia, unspecified; Z79.82 Long term (current) use of aspirin
CPT/HCPCS: 36415; 71045; 71250; 76700; 76856; 80053; 80202; 82550; 82553; 82607; 82784; 82948; 83540; 83880; 84436; 84443; 84466; 84479; 84484; 85025; 87040; 87070; 87071; 87205; 93005; 93306; 94640; 94664; 96372; 99284; J0456; J0696; J1817; J2930; J3370; J7030; J7050; J7512

== ENCOUNTER 2019-09-12 01:48 | Emergency (ER) | payer MEDICARE, OTHER ==
[~2019-09-12] VITALS: Ht 154.9 cm; Wt 128.4 kg
[~2019-09-12 01:48] MED LIST changes: +FOLGARD TABLET1 EAC1 PO; +LEVAQUIN500 MG PO; +LOSARTAN POTAS100 MG PO; +MYRBETRIQ50 MG PO
--- NOTE | 2019-09-12 01:57 | Emergency Department Note ---
History of Present Illnes History of Present Illness History of Present Illness This is a 78 year old female brought by EMS for evaluation of mechanical fall she sustained prior to arrival. Per patient she had slipped and fell onto the top of her head w/o LOC. Complains of head and facial pain as well as L UE pain. . 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 Any updates have been documented here. Past Medical History Recent Fever: No Clinical Suspicion of Infectio: No New/Unexplained Change in Ment: No Past Medical History: Hypertension, Diabetes, Asthma, Hypothyroidism, Cancer, Hyperlipedemia Other Medical History: Uterine cancer Past Surgical History: Cholecysctectomy, Appendectomy, Hysterectomy, Knee Replacement Other Surgery: BILATERAL TOTAL KNEE REPLACEMENT RT SHOULDER REPAIR Social History Smoking Cessation: Never Smoker Alcohol Use: None Any Illegal Drug Use: No Other Last Tetanus: UTD Physical Exam Related Data Allergies: Coded Allergies: morphine (Verified Allergy, Severe, HALLUCINATIONS, 04/11/13) Penicillins (Verified Allergy, Intermediate, RASH, 01/15/19) codeine (Verified Allergy, Intermediate, SHAKES, 04/11/13) meperidine HCl (Verified Allergy, Unknown, 04/11/13) Physical Exam CONSTITUTIONAL HENT HENT: Present other (cephalohematoma middle forehead) EYES NECK PULMONARY CARDIOVASCULAR GASTROINTESTINAL GENITOURINARY SKIN MUSCULOSKELETAL NEUROLOGICAL PSYCHOLOGICAL Results Imaging Imaging results reviewed: Yes Impressions [place] [address] Patient Name: SUSANNA KIM MR #: [id number] : 1940 Age/Sex: 78/F Req #: [id number] Adm Physician: Ordered by: SAROJ MONTE DO Report #: [id number] Location: ER Room/Bed: Procedure: [id number] CT/CT BRAIN WO Exam Date: 09/12/19 Exam Time: 0245 REPORT STATUS: Signed History: Fall, hit head, and headache, Comparison studies:None Technique: Axial images were obtained to the vertex and maxillofacial region. Coronal and sagittal images reconstructed from the axial data. Intravenous contrast: None Dose modulation, iterative reconstruction, and/or weight based adjustment of the mA/kV was utilized to reduce the radiation dose to as low as reasonably achievable. Findings: Scalp/skull: Frontoparietal midline scalp hematoma. No fractures, blastic or lytic lesions. Extra-axial spaces: No masses. No fluid collections. Brain sulci: Appropriate for age. Ventricles: Normal in size and configuration. No hydrocephalus. Parenchyma: Few hypodensities of the supratentorial white matter, most commonly seen with mild chronic microvascular ischemic changes. No masses, hemorrhage, acute or chronic cortical vascular insults. Sellar/suprasellar region: CSF filled sella Craniocervical junction: Patent foramen magnum. No Chiari one malformation. Atherosclerotic calcifications of the carotid siphons and vertebral arteries Maxillofacial CT: Soft tissues: No abnormalities. Bones: No fractures or bone abnormalities. Orbits: Globes: No acute abnormality. Bilateral cataract surgery changes. Extra or intraconal abnormalities: None. Paranasal sinuses: Clear Incidental findings: None Impression: Head CT: 1. No acute intracranial abnormality 2. Midline frontoparietal scalp hematoma without underlying fracture. Maxillofacial CT: 1. No acute abnormality Signed by: DR Piotr Espino M.D. on 09/12/2019 3:53 AM Dictated By: PIOTR BRADLEY MD [id number] Transcribed By: STEPHENIE on 09/12/19352 COPY TO: SAROJ MONTE DO~ [facility] [address] [address] Patient Name: SUSANNA KIM MR #: [id number] : 1940 Age/Sex: 78/F Req #: [id number] Adm Physician: Ordered by: SAROJ MONTE DO Report #: [id number] Location: ER Room/Bed: Procedure: [id number] CT/CT MAXIO FAC/PARANAS WO Exam Date: 09/12/19 Exam Time: 0245 REPORT STATUS: Signed History: Fall, hit head, and headache, Comparison studies:None Technique: Axial images were obtained to the vertex and maxillofacial region. Coronal and sagittal images reconstructed from the axial data. Intravenous contrast: None Dose modulation, iterative reconstruction, and/or weight based adjustment of the mA/kV was utilized to reduce the radiation dose to as low as reasonably achievable. Findings: Scalp/skull: Frontoparietal midline scalp hematoma. No fractures, blastic or lytic lesions. Extra-axial spaces: No masses. No fluid collections. Brain sulci: Appropriate for age. Ventricles: Normal in size and configuration. No hydrocephalus. Parenchyma: Few hypodensities of the supratentorial white matter, most commonly seen with mild chronic microvascular ischemic changes. No masses, hemorrhage, acute or chronic cortical vascular insults. Sellar/suprasellar region: CSF filled sella Craniocervical junction: Patent foramen magnum. No Chiari one malformation. Atherosclerotic calcifications of the carotid siphons and vertebral arteries Maxillofacial CT: Soft tissues: No abnormalities. Bones: No fractures or bone abnormalities. Orbits: Globes: No acute abnormality. Bilateral cataract surgery changes. Extra or intraconal abnormalities: None. Paranasal sinuses: Clear Incidental findings: None Impression: Head CT: 1. No acute intracranial abnormality 2. Midline frontoparietal scalp hematoma without underlying fracture. [facility] [address] [address] Patient Name: SUSANNA KIM MR #: [id number] : 1940 Age/Sex: 78/F Req #: [id number] Adm Physician: Ordered by: SAROJ MONTE DO Report #: [id number] Location: ER Room/Bed: Procedure: [id number] DX/CHEST 2 VIEWS Exam Date: 09/12/19 Exam Time: 244 REPORT STATUS: Signed EXAMINATION: CHEST 2 VIEWS INDICATION: Left upper chest wall pain COMPARISON: Chest CT 01/10/2019; chest x-ray 01/10/2019 FINDINGS: TUBES and LINES: None. LUNGS: Normal lung volumes. Lungs are clear. Prominent central pulmonary vasculature. PLEURA: No pleural effusion or pneumothorax. HEART AND MEDIASTINUM: Cardiac size is mildly enlarged. BONES AND SOFT TISSUES: No acute osseous lesion. Soft tissues are unremarkable. Degenerative changes. UPPER ABDOMEN: No free air under the diaphragm. IMPRESSION: Mild cardiomegaly and pulmonary vascular congestion. Signed by: Pal Freire DO on 09/12/2019 4:11 AM Dictated By: PAL FREIRE DO 0 Transcribed By: STEPHENIE on 09/12/19410 COPY TO: SAROJ MONTE DO~ Maxillofacial CT: 1. No acute abnormality Signed by: DR Piotr Espino M.D. on 09/12/2019 3:53 AM Dictated By: PIOTR BRADLEY MD 2 COPY TO: SAROJ MONTE DO~ Assessment & Plan Medical Decision Making MDM 78 yof with mechanical fall with head injury without LOC. Diff Dx : skull fx, SAH, SDH, Epidural hematoma. CT neg. plan to discharge to home . Assessment & Plan Final Impression: (1) Scalp hematoma Depart Disposition: HOME, SELF-senior care Meds Reported Medications Levofloxacin (LEVAQUIN) 500 Mg Tablet, 500 MG PO DAILY for 5 Days, TAB 01/16/19 Vit D3/Folic Acid/B2/B6/B12 (Folgard Tablet) 1 Each Tablet, PO DAILY 01/10/19 Mirabegron (MYRBETRIQ) 50 Mg Tab.er.24h, 50 MG PO DAILY 01/10/19 Losartan Potassium (LOSARTAN POTASSIUM) 100 Mg Tablet, 100 MG PO DAILY, TAB 01/10/19 Aspirin (ASPIR 81) 81 Mg Tablet.dr, 81 MG PO DAILY 05/17/15 Pravastatin Sodium (PRAVASTATIN SODIUM) 20 Mg Tablet, 20 MG PO DAILY 04/11/13 Levothyroxine Sodium (LEVOTHYROXINE SODIUM) 150 Mcg Tablet, 0.125 MCG PO DAILY 04/11/13 Potassium Chloride (KLOR-CON 10) 10 Meq Tablet.er, PO DAILY 04/11/13 Gabapentin (GABAPENTIN) 300 Mg Capsule, 300 MG PO BID 04/11/13 Furosemide (FUROSEMIDE) 40 Mg Tablet, 40 MG PO DAILY 04/11/13 Citalopram Hydrobromide (CITALOPRAM HBR) 20 Mg Tablet, 20 MG PO DAILY 04/11/13 Cilostazol (CILOSTAZOL) 100 Mg Tablet, 100 MG PO BID 04/11/13 Bupropion Hcl (BUPROPION HCL SR) 200 Mg Tablet.er, 200 MG PO DAILY 04/11/13 SAROJ MONTE DO Sep 12, 2019 01:57
--- NOTE | 2019-09-12 03:56 | Diagnostic Imaging Report ---
History: Fall, hit head, and headache, Comparison studies:None Technique: Axial images were obtained to the vertex and maxillofacial region. Coronal and sagittal images reconstructed from the axial data. Intravenous contrast: None Dose modulation, iterative reconstruction, and/or weight based adjustment of the mA/kV was utilized to reduce the radiation dose to as low as reasonably achievable. Findings: Scalp/skull: Frontoparietal midline scalp hematoma. No fractures, blastic or lytic lesions. Extra-axial spaces: No masses. No fluid collections. Brain sulci: Appropriate for age. Ventricles: Normal in size and configuration. No hydrocephalus. Parenchyma: Few hypodensities of the supratentorial white matter, most commonly seen with mild chronic microvascular ischemic changes. No masses, hemorrhage, acute or chronic cortical vascular insults. Sellar/suprasellar region: CSF filled sella Craniocervical junction: Patent foramen magnum. No Chiari one malformation. Atherosclerotic calcifications of the carotid siphons and vertebral arteries Maxillofacial CT: Soft tissues: No abnormalities. Bones: No fractures or bone abnormalities. Orbits: Globes: No acute abnormality. Bilateral cataract surgery changes. Extra or intraconal abnormalities: None. Paranasal sinuses: Clear Incidental findings: None Impression: Head CT: 1. No acute intracranial abnormality 2. Midline frontoparietal scalp hematoma without underlying fracture. Maxillofacial CT: 1. No acute abnormality Signed by: DR Piotr Espino M.D. on 09/12/2019 3:53 AM
--- NOTE | 2019-09-12 04:14 | Diagnostic Imaging Report ---
EXAMINATION: CHEST 2 VIEWS INDICATION: Left upper chest wall pain COMPARISON: Chest CT 01/10/2019; chest x-ray 01/10/2019 FINDINGS: TUBES and LINES: None. LUNGS: Normal lung volumes. Lungs are clear. Prominent central pulmonary vasculature. PLEURA: No pleural effusion or pneumothorax. HEART AND MEDIASTINUM: Cardiac size is mildly enlarged. BONES AND SOFT TISSUES: No acute osseous lesion. Soft tissues are unremarkable. Degenerative changes. UPPER ABDOMEN: No free air under the diaphragm. IMPRESSION: Mild cardiomegaly and pulmonary vascular congestion. Signed by: Pal Freire DO on 09/12/2019 4:11 AM
== END 2019-09-12 05:40 | disposition home or self-care (01) ==
LOC: ER 01:48
DX: S00.83XA Contusion of other part of head, initial encounter (principal); W01.0XXA Fall on same level from slipping, tripping and stumbling without subsequent striking against object, initial encounter; I10 Essential (primary) hypertension; E11.9 Type 2 diabetes mellitus without complications; E78.5 Hyperlipidemia, unspecified; E03.9 Hypothyroidism, unspecified; Z85.42 Personal history of malignant neoplasm of other parts of uterus; Z96.653 Presence of artificial knee joint, bilateral
CPT/HCPCS: 70450; 70486; 71046; 99283

== ENCOUNTER 2019-10-25 02:29 | Emergency (ER) | payer MEDICARE, OTHER ==
[~2019-10-25] VITALS: Ht 149.9 cm; Wt 130.6 kg
[2019-10-25] MEDS ORDERED: TRAMADOL HCL 50 MG TAB PO ONE (02:45)
[2019-10-25] MEDS ORDERED: CYCLOBENZAPRINE HCL 10 MG TAB PO ONE (02:45)
--- NOTE | 2019-10-25 02:54 | Emergency Department Note ---
History of Present Illnes History of Present Illness Chief Complaint: Extremity Trauma/Pain History of Present Illness This is a 78 year [facility] [place] [facility] [place] worsening hip pain with radiation down right leg that has been going on for about a week. Patient states she saw Dr. Bradford recently and had negative MRI and X-ray. . Historian: Patient, [facility] [place]/EMS Arrival Mode: [facility] Onset (how long ago): week(s) (7) Location: RIGHT HIP Quality: PAIN Radiation: Reports extremity (RLE) Severity: moderate Onset quality: gradual Duration (how long): day(s) (7) Timing of current episode: constant Progression: unchanged Chronicity: new Context: Denies recent illness, Denies recent surgery, Denies recent travel Relieving factors: none Exacerbating factors: movement Associated symptoms: Reports denies other symptoms Treatments prior to arrival: none Previous service: tests performed (BY PCP HIP XRAY AND MRI LOWER BACK) Past Medical/Family History Physician Review I have reviewed the patient's past medical and family history. Any updates have been documented here. Past Medical History Recent Fever: No Clinical Suspicion of Infectio: No New/Unexplained Change in Ment: No Past Medical History: Hypertension, Diabetes, Asthma, Hypothyroidism, Cancer, Hyperlipedemia Other Medical History: Uterine cancer Past Surgical History: Cholecysctectomy, Appendectomy, Hysterectomy, Knee Replacement Other Surgery: BILATERAL TOTAL KNEE REPLACEMENT RT SHOULDER REPAIR bladder lift lower back sx Social History Smoking Cessation: Never Smoker Alcohol Use: None Any Illegal Drug Use: No Physically hurt or threatened: No Family History Family history of heart diseas: No Other family history HTN,DM Other Last Tetanus: UTD Review of Systems Review of Systems Constitutional: Reports no symptoms EENTM: Reports no symptoms Cardiovascular: Reports no symptoms Respiratory: Reports no symptoms Gastrointestinal: Reports no symptoms Genitourinary: Reports no symptoms Musculoskeletal: Reports as per HPI Integumentary: Reports no symptoms Neurological: Reports no symptoms Psychological: Reports no symptoms Endocrine: Reports no symptoms Hematological/Lymphatic: Reports no symptoms Physical Exam Related Data Allergies: Coded Allergies: morphine (Verified Allergy, Severe, HALLUCINATIONS, 04/11/13) Penicillins (Verified Allergy, Intermediate, RASH, 01/15/19) codeine (Verified Allergy, Intermediate, SHAKES, 04/11/13) meperidine HCl (Verified Allergy, Unknown, 04/11/13) Triage Vital Signs Vital Signs Date Time Temp Pulse Resp B/P (MAP) Pulse Ox O2 Delivery O2 Flow Rate FiO2 10/25/19 02:29 98.5 82 21 158/83 95 Room Air Vital signs reviewed: Yes Physical Exam CONSTITUTIONAL Constitutional: Present well-developed, Present well-nourished HENT HENT: Present normocephalic, Present atraumatic, Present oropharynx clear/moist, Present nose normal HENT L/R: Present left ext ear normal, Present right ext ear normal EYES Eyes: Reports PERRL, Reports conjunctivae normal NECK Neck: Present ROM normal PULMONARY Pulmonary: Present effort normal, Present breath sounds normal CARDIOVASCULAR Cardiovascular: Present regular rhythm, Present heart sounds normal, Present capillary refill normal, Present normal rate GASTROINTESTINAL Abdominal: Present soft, Present nontender, Present bowel sounds normal GENITOURINARY Genitourinary: Present exam deferred SKIN Skin: Present warm, Present dry MUSCULOSKELETAL PAIN TO RIGHT LOWER BACK/BUTTOCK, TENDER TO PALPATION, PAIN INCREASES WITH STRAIGHT LEG RAISE AT 30 DEGREES, PULSES INTACT 2+ TO PALPATION, NO NEURO DEFICITS NOTED NEUROLOGICAL Neurological: Present alert, Present oriented x 3, Present no gross motor or sensory deficits PSYCHOLOGICAL Psychological: Present mood/affect normal, Present judgement normal Results Laboratory Laboratory Laboratory Tests Test 10/25/19 03:45 Urine Color Yellow (YELLOW) Urine Clarity Cloudy (CLEAR) Urine pH 7 (5 - 7) Urine Specific [place] 1.020 (1.010-1.025) Urine Protein Negative (NEGATIVE) Urine Glucose (UA) Negative (NEGATIVE) Urine Ketones Negative (NEGATIVE) Urine Blood Negative (NEGATIVE) Urine Nitrite Positive (NEGATIVE) Urine Bilirubin Negative (NEGATIVE) Urine Urobilinogen 0.2 mg/dL (0.2 - 1) Urine Leukocyte Esterase Trace (NEGATIVE) Lab results reviewed: Yes Assessment & Plan Medical Decision Making MDM PT WITH RIGHT HIP/LEG PAIN TRAMADOL 50 MG PO ORDERED FLEXERIL 10MG PO ORDERED PT DISCHARGED WITH PRESCRIPTIONS FOR TRAMADOL 50 MG ONE PO Q 6 HOURS PRN PAIN, F LEXERIL 5 MG ONE PO Q 12 HOURS PRN MUSCLE SPASM INSTRUCTED TO FOLLOW UP WITH PCP SUNDAY IF NOT BETTER Assessment & Plan Final Impression: (1) Sciatica of right side (2) UTI (urinary tract infection) Depart Disposition: HOME, SELF-CARE Last Vital Signs Date Time Temp Pulse Resp B/P (MAP) Pulse Ox O2 Delivery O2 Flow Rate FiO2 10/25/19 02:29 98.5 82 21 158/83 95 Room Air Home Meds Reported Medications Levofloxacin (LEVAQUIN) 500 Mg Tablet, 500 MG PO DAILY for 5 Days, TAB 01/16/19 Vit D3/Folic Acid/B2/B6/B12 (Folgard Tablet) 1 Each Tablet, PO DAILY 01/10/19 Mirabegron (MYRBETRIQ) 50 Mg Tab.er.24h, 50 MG PO DAILY 01/10/19 Losartan Potassium (LOSARTAN POTASSIUM) 100 Mg Tablet, 100 MG PO DAILY, TAB 01/10/19 Aspirin (ASPIR 81) 81 Mg Tablet.dr, 81 MG PO DAILY 05/17/15 Pravastatin Sodium (PRAVASTATIN SODIUM) 20 Mg Tablet, 20 MG PO DAILY 04/11/13 Levothyroxine Sodium (LEVOTHYROXINE SODIUM) 150 Mcg Tablet, 0.125 MCG PO DAILY 04/11/13 Potassium Chloride (KLOR-CON 10) 10 Meq Tablet.er, PO DAILY 04/11/13 Gabapentin (GABAPENTIN) 300 Mg Capsule, 300 MG PO BID 04/11/13 Furosemide (FUROSEMIDE) 40 Mg Tablet, 40 MG PO DAILY 04/11/13 Citalopram Hydrobromide (CITALOPRAM HBR) 20 Mg Tablet, 20 MG PO DAILY 04/11/13 Cilostazol (CILOSTAZOL) 100 Mg Tablet, 100 MG PO BID 04/11/13 Bupropion Hcl (BUPROPION HCL SR) 200 Mg Tablet.er, 200 MG PO DAILY 04/11/13 Medications in the ED Tramadol HCl 50 mg ONCE ONCE PO Last administered on 10/25/19at 02:46; Admin Dose 50 MG; Start 10/25/19 at 02:45; Stop 10/25/19 at 02:46; Status DC Cyclobenzaprine HCl 10 mg ONCE ONCE PO Last administered on 10/25/19at 02:47; Admin Dose 10 MG; Start 10/25/19 at 02:45; Stop 10/25/19 at 02:46; Status DC GILLES ROGERS MD Oct 25, 2019 02:54
--- OUTSIDE RECORDS SUMMARY | 2019-10-25 02:57 | XMS REPORT | Continuity of Care Document ---
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 Role Phone [employer] Unavailable Un available Problems Problem Status Onset Date Classification Date Reported Comments Source Hypercholesteremia Active Problem 08/24/2017 Cristofer Watters Abnormal EKG Active Problem 08/24/2017 Cristofer Watters TIA (transient ischemic attack) Active Problem 03/2017 Cristofer Watters Shortness of breath Active Problem 08/24/2017 Cristofer Watters Generalized osteoarthritis Act erick Diagnosis 0 08/24/2017 Cristofer Watters Patient unable to exercise Act erick Problem 03/2017 Cristofer Watters Morbid obesity due to excess calories Active Diagnosis 08/24/2017 Cristofer Watters Hypertensive heart disease without heart failure Active Problem 08/24/2017 Cristofer Watters Aortic valve sclerosis Active Problem 08/24/2017 Cristofer Watters Varicose veins Active Problem 08/24/2017 Cristofer Watters Abnormal result of other cardiovascular function study Active Problem 08/24/2017 Cristofer Watters Precordial pain Active Problem 08/24/2017 Cristofer Watters Acquired hypothyroidism Active Diagnosis 08/24/2017 Cristofer Watters Urinary incontinence Active Diagnosis 08/24/2017 Cristofer Watters Medications Medication Details Route Status Patient Instructions Ordering Provider Order Date Source Klor-Con 10 1 tablet Orally Active 10 MEQ Orally Once a da y Janene Watters Gabapentin 1 capsule Orally Active 300 MG Orally Three rachele es a day Janene Watters Pravastatin Sodium 1 tablet Orally Active 20 MG Orally Once a day Janene Watters Lasix 1 tablet Orally Active 40 MG Orally Once a day Janene Watters Levothyroxine Sodium 1 tablet on an empty stomach in the morning Orally Active 175 MCG Orally Once a day [place] sou[place] Mohamed O Jeroudi Aspirin Adult Low Strength 1 t ablet Orally Active 81 MG Orally Once a day Jeroudi Mohamed O Jeroudi Allergies, Adverse Reactions, Alerts Substance Category Reaction Severity Reaction type Status Date Reported Comments Source Morphine Adverse Reaction Hallucinations Adverse Reactio n Active 02/01/2017 Mohamed O Jeroudi Penicillin Adverse Reaction Anaphylaxis Adverse Reaction Active 02/01/2017 Mohamed O Jeroudi Demerol Adverse Reaction Dizziness Adverse Reaction Active 02/01/2017 Mohamed O Jeroudi Codeine Phosphate Adverse Reac tion Jitters Adv erse Reaction Active 02/01/2017 Mohamed O Jeroudi Immunizations No Data Provided for This Section Results No Data Provided for This Section Pathology Reports No Data Provided for This Section Diagnostic Reports No Data Provided for This Section Consultation Notes No Data Provided for This Section Discharge Summaries No Data Provided for This Section History and Physicals No Data Provided for This Section Vital Signs Vital Sign Value Date Comments Source Weight 277 02/01/2017 Mohamed O Jeroudi Height 63 1 04/03/2016 Mohamed O Jeroudi Temperature Oral (F) 98.6 F 02/01/2017 Mohamed O Jeroudi Heart Rate 90 02/01/2017 Mohamed O Jeroudi Diastolic (mm Hg) 86 02/01/2017 Mohamed O Jeroudi Systolic (mm Hg) 138 02/01/2017 Mohamed O Jeroudi Weight 279 08/17/2016 Mohamed O Jeroudi Height 63 0 08/17/2016 Mohamed O Jeroudi Temperature Oral (F) 98.6 F 08/17/2016 Mohamed O Jeroudi Heart Rate 75 08/17/2016 Mohamed O Jeroudi Diastolic (mm Hg) 70 08/17/2016 Mohamed O Jeroudi Systolic (mm Hg) 142 08/17/2016 Mohamed O Jeroudi Encounters No Data Provided for This Section Procedures No Data Provided for This Section Assessment and Plan No Data Provided for This Section Plan of Care No Data Provided for This Section Social History No Data Provided for This Section Family History No Data Provided for This Section Advance Directives No Data Provided for This Section Functional Status No Data Provided for This Section
--- OUTSIDE RECORDS SUMMARY | 2019-10-25 02:58 | XMS REPORT | Continuity of Care Document ---
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 Name Role Phone ERICKA TERRELL, Merritt LAGUNAS PCP SAROJ MONTE Attphys Unavailable SINGH, Merritt ILA Attphys Unavailable SINGH, A ILA Admphys Unavailable Payers Payer Name Policy Type Policy Number Effective Date Expiration Date Virgilio pitts [employer] [id number] 2011 00:00:00 [facility] [employer] [id number] 2005 00:00:00 [facility] Problems Condition Name Condition Details Condition Category Status Onset Date Resolution Date Last Treatment Date Treating Clinician Comments Source Multifocal pneumonia Multifocal pneumonia Problem Active [facility] Hypercholesteremia Hype rcholesteremia Active Problem 08/24/2017 Mablegenoveva Alex Demetriusoudi Problem Active 2017-08-24 02:46:28 Gregory Fernandez Abnormal EKG Abno rmal EKG Active Problem 08/24/2017 Cristofer Johnson Demetriusoudi Problem Active 2017-08-24 02:46:28 Gregory Fernandez TIA (transient ischemic attack) TIA (transient ischemic attack) Active Problem 08/24/2017 Mohamed Alex Demetriusoudi Problem Active 2017-08-24 02:46:28 Gregory Fernandez Shortness of breath Shor tness of breath Active Problem 08/24/2017 Cristofer Romooudi Problem Active 2017-08-24 02:46:28 Gregory Fernandez 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 Diagnosis 08/24/2017 Cristofer Watters Diagnosis Active 2017-08-24 02:46:28 [facility] Patient unable to exercise Pat ient unable to exercise Active Problem 08/24/2017 Cristofer Watters Problem Active 2017-08-24 02:46:28 [facility] Morbid obesity due to excess calories Morbid obesity due to excess calories Active Diagnosis 08/24/2017 Cristofer Watters Diagnosis Active 2017-08-24 02:46:28 [facility] Hypertensive heart disease without heart failure Hypertensive heart disease without heart failure Active Problem 08/24/2017 Cristofer Watters Problem Active 2017-08-24 02:46:28 [facility] Aortic valve sclerosis Aort ic valve sclerosis Active Problem 08/24/2017 Cristofer Watters Problem Active 20 10-09-00 02:46:28 [facility] Varicose veins Vari cose veins Active Problem 08/24/2017 Cristofer Watters Problem Active 2017-08-24 02:46:28 [facility] Abnormal result of other cardiovascular function study Abnormal result of other cardiovascular function study Active Problem 08/24/2017 Cristofer Watters Problem Active 2017-08-24 02:46:28 [facility] Precordial pain Prec ordial pain Active Problem 08/24/2017 Cristofer Watters Problem Active 2017-08-24 02:46:28 [facility] Acquired hypothyroidism Acqu ired hypothyroidism Active Diagnosis 08/24/2017 Cristofer Watters Diagnosis Active 2017-08-24 02:46:28 [facility] Urinary incontinence Urin rafita incontinence Active Diagnosis 08/24/2017 Cristofer Watters Diagnosis Active 2017-08-24 02:46 :28 [facility] Allergies, Adverse Reactions, Alerts Allergy Name Allergy Type Status Severity Reaction(s) Onset Date Inacti ve Date Treating Clinician Comments Source Penicillin Allergy to Substance Active Moderate RASH 2019-01-15 00:00:0 0 [facility] Penicillin Penicillin Active Anaphylaxis 2017-02-01 00:00:00 [facility] Dem[facility] Demerol Active Dizziness 2017-02-01 00:00:00 [facility] Codeine Phosphate Codeine Phosphate Active Jitters 2017-02-01 00:0 0:00 [facility] meperidine HCl Allergy to Substance Active 2013-04-11 00:00 :00 [facility] Morphine Allergy to Substance Active Severe HALLUCINATIONS 2013 00:00:00 [facility] Codeine Allergy to Substance Active Moderate SHAKES 2013-04-11 00:00:00 [facility] meperidine HCl DA Active U 2013-01-17 00:00:00 [facility] Penicillins DA Active U 2013-01-17 00:00:00 [facility] morphine DA Active DE 2013-01-17 00:00:00 [facility] Medications Ordered Medication Name Filled Medication Name Start Date Stop Da te Current Medication? Ordering Clinician Indication Dosage Frequency Signature (SIG) Comments Components Source Klor-Con 10 2017-08-24 02:46:28 Yes Ahmad Jeroudi 1 tablet [facility] Gabapentin 2017-08-24 02:46:28 Yes Ahmad Jeroudi 1 capsule [facility] Pravastatin Sodium 2017-08-24 02:46:28 Yes Ahmad Jeroudi 1 tablet [facility] Lasix 2017-08-24 02:46:28 Yes Ahmad Jeroudi 1 tab let [facility] Levothyroxine Sodium 2017-08-24 02:46:28 Yes Antoniad Jerou di 1 tablet on an empty stomach in the morning [facility] Aspirin Adult Low Strength 2017-08-24 02:46:28 Yes Ahmad Jeroudi 1 tablet [facility] Aspirin (Aspir 81) 81 Mg Tablet. Aspirin (Aspir 81) 81 Mg Tablet. Yes 81 Daily [facility] Bupropion Hcl (Bupropion Hcl Sr) 200 Mg Tablet.er Bupr opion Hcl (Bupropion Hcl Sr) 200 Mg Tablet.er Yes 200 Daily [facility] Cilostazol 100 Mg Tablet Cilostazol 100 Mg Tablet Yes 100 Twice A Day [facility] Citalopram Hydrobromide (Citalopram Hbr) 20 Mg Tablet Citalopram Hydrobromide (Citalopram Hbr) 20 Mg Tablet Yes 20 Daily [facility] Furosemide 40 Mg Tablet Furosemide 40 Mg Tablet Yes 40 Daily [facility] Gabapentin 300 Mg Capsule Gabapentin 300 Mg Capsule Yes 300 Twice A Day [facility] Levofloxacin (Levaquin) 500 Mg Tablet Levofloxacin (Levaquin) 500 M g Tablet Yes 500 Daily [facility] Levothyroxine Sodium 150 Mcg Tablet Levothyroxine Sodium 150 Mcg Tabl et Yes .125 Daily [facility] Losartan Potassium 100 Mg Tablet Losartan Potassium 100 Mg Tablet Yes 100 Daily [facility] Mirabegron (Myrbetriq) 50 Mg Tab.er.24h Mirabegron (Myrbetri q) 50 Mg Tab.er.24h Yes 50 Daily [facility] Potassium Chloride (Klor-Con 10) 10 Meq Tablet.er Pota ssium Chloride (Klor-Con 10) 10 Meq Tablet.er Yes Daily [facility] Pravastatin Sodium 20 Mg Tablet Pravastatin Sodium 20 Mg Tablet Yes 20 Daily [facility] Vit D3/Folic Acid/B2/B6/B12 (Folgard Tablet) 1 Each Ta blet Vit D3/Folic Acid/B2/B6/B12 (Folgard Tablet) 1 Each Tablet Yes Daily [facility] Saccharomyces Boulardii (Florastor) 250 Mg Capsule, 25 0 Mg Oral Saccharomyces Boulardii (Florastor) 250 Mg Capsule, 250 Mg Oral 2019-01-10 00:00:00 No 250 Twice A Day [facility] Nebivolol Hcl (Bystolic) 5 Mg Tablet, 5 Mg Oral Nebivo lol Hcl (Bystolic) 5 Mg Tablet, 5 Mg Oral 2015-05-24 00:00:00 No 5 Daily [facility] Ciprofloxacin Hcl 750 Mg Tablet, 750 Mg Oral Ciproflox acin Hcl 750 Mg Tablet, 750 Mg Oral 2015-05-17 00:00:00 No 750 Daily [facility] Promethazine Hcl 12.5 Mg Tablet, 12.5 Mg Oral Prometha zine Hcl 12.5 Mg Tablet, 12.5 Mg Oral 2015-05-17 00:00:00 No 12.5 Daily [facility] Tramadol Hcl (Ultram 50MG*) 50 Mg Tab, 50 Mg Oral Tram adol Hcl (Ultram 50MG*) 50 Mg Tab, 50 Mg Oral 2015-05-17 00:00:00 No 50 Four Times Daily [facility] Acetaminophen/Hydrocodone Bitart ([place] 10MG-325MG*) 1 Ea Tab, 1 Tab Oral Acetaminophen/Hydrocodone Bitart ([place] 10MG-325MG*) 1 Ea Tab, 1 Tab Oral 2013-04-15 00:00:00 No 1 Every 4 Hours [facility] Hydrocodone Bit/Acetaminophen (Hydrocodo n-Acetaminophn 10-325) 1 Each Tablet, Mg Oral Hydrocodone Bit/Acetaminophen (Hydrocodo n-Acetaminophn 10-325) 1 Each Tablet, Mg Oral 2013-04-15 00:00:00 No Daily [facility] Hydrocodone Bit/Acetaminophen ([place] 10-325 Tablet) 1 Each Tablet, Mg Oral Hydrocodone Bit/Acetaminophen ([place] 10-325 Tablet) 1 Each Tablet, Mg Oral 2013-04-15 00:00:00 No Daily [facility] Lubiprostone (Amitiza) 24 Mcg Capsule, 24 Mg Oral Lubi prostone (Amitiza) 24 Mcg Capsule, 24 Mg Oral 2013-04-15 00:00:00 No 24 Woody y [facility] Meclizine Hcl 25 Mg Tablet, 25 Mg Oral Meclizine Hcl 25 Mg Table t, 25 Mg Oral 2013-04-15 00:00:00 No 25 Daily [facility] Metaxalone 800 Mg Tablet, 800 Mg Oral Metaxalone 800 Mg Tablet, 800 Mg Oral 2013-04-15 00:00:00 No 800 Daily [facility] Metaxalone (Skelaxin) 800 Mg Tablet, 800 Mg Oral Metax alone (Skelaxin) 800 Mg Tablet, 800 Mg Oral 2013-04-15 00:00:00 No 800 Woody y [facility] Metronidazole 250 Mg Tablet, 250 Mg Oral Metronidazole 250 Mg Tablet, 250 Mg Oral 2013-04-15 00:00:00 No 250 Daily [facility] Vital Signs Vital Name Observation Time Observation Value Comments Source Weight 2017-02-01 19:00:00 [facility] Height 2017-02-01 19:00:00 [facility] Temperature Oral (F) 2017-02-01 19:00:00 98.6 F [facility] Heart Rate 2017-02-01 19:00:00 [facility] Diastolic (mm Hg) 2017-02-01 19:00:00 [facility] Systolic (mm Hg) 2017-02-01 19:00:00 [facility] Weight 2016-08-17 19:00:00 [facility] Height 2016-08-17 19:00:00 [facility] Temperature Oral (F) 2016-08-17 19:00:00 98.6 F [facility] Heart Rate 2016-08-17 19:00:00 [facility] Diastolic (mm Hg) 2016-08-17 19:00:00 [facility] Systolic (mm Hg) 2016-08-17 19:00:00 [facility] Procedures Procedure Date / Time Performed Performing Clinician [facility] e Computed tomography of chest without contrast 2019-01-10 00: 00:00 GILLES ROGERS [facility] US abdomen complete 2019-01-10 00:00:00 [facility] Complete non-obstetrical ultrasound of pelvis 2019-01-10 00: 00:[address] [facility] Encounters Start Date/Time End Date/Time Encounter Type Admission Type [facility] Care Department Encounter ID Source 2019-01-10 03:27:00 2019-01-16 14:05:00 Discharged Inpatient 1 [facility] [id number] [facility] 2017-02-01 14:00:00 2017-02-01 14:00:00 Outpatient Cristofer Watters [place] [id number] [facility] 2016-08-17 14:00:00 2016-08-17 14:00:00 Outpatient Cristofer Watters [place] [id number] [facility] Results Test Description Test Time Test Comments Results Result Comments Source CHEST 2 VIEWS 2019-09-12 04:08:00 [facility] [address] [id number] Patient Name: SUSANNA KIM MR #: [id number] : 1940 Age/Sex: 78/F Req #: [id number] Adm Physician: Ordered by: SAROJ MONTE DO Report #: [id number] Location: ER Room/Bed: Procedure: [id number] DX/CHEST 2 VIEWS Exam Date: 09/12/19 Exam Time: 5 REPORT STATUS: Signed EXAMINATION: CHEST 2 VIEWS INDICATION: Left upper chest wall pain COMPARISON: Chest CT 01/10/2019; chest x-ray 01/10/2019 FINDINGS: TUBES and LINES: None. LUNGS: Normal lung volumes. Lungs are clear. Prominent central pulmonary vasculature. PLEURA: No pleural effusion or pneumothorax. HEART AND MEDIASTINUM: Cardiac size is mildly enlarged. BONES AND SOFT TISSUES: No acute osseous lesion. Soft tissues are unremarkable. Degenerative changes. UPPER ABDOMEN: No free air under the diaphragm. IMPRESSION: Mild cardiomegaly and pulmonary vascular congestion. Signed by: Pal Curtis DO on 09/12/2019 4:11 AM Dictated By: PAL CURTIS DO 0 Transcribed By: STEPHENIE on 09/12/19410 COPY TO: SAROJ MONTE DO CT MAXIO FAC/PARANAS WO 2019-09-12 03:24:00 [address] [id number] Patient Name: SUSANNA KIM MR #: [id number] : 1940 Age/Sex: 78/F Req #: [id number] Adm Physician: Ordered by: SAROJ MONTE DO Report #: [id number] Location: ER Room/Bed: Procedure: [id number] CT/CT MAXIO FAC/NADIA WO Exam Date: 09/12/19 Exam Time: 0245 REPORT STATUS: Signed History: Fall, hit head, and headache, Comparison studies:None Technique: Axial images were obtained to the vertex and maxillofacial region. Coronal and sagittal images reconstructed from the axial data. Intravenous contrast: None Dose modulation, iterative reconstruction, and/or weight based adjustment of the mA/kV was utilized to reduce the radiation dose to as low as reasonably achievable. Findings: Scalp/skull: Frontoparietal midline scalp hematoma. No fractures, blastic or lytic lesions. Extra-axial spaces: No masses. No fluid collections. Brain sulci: Appropriate for age. Ventricles: Normal in size and configuration. No hydrocephalus. Parenchyma: Few hypodensities of the supratentorial white matter, most commonly seen with mild chronic microvascular ischemic changes. No masses, hemorrhage, acute or chronic cortical vascular insults. Sellar/suprasellar region: CSF filled sella Craniocervical junction: Patent foramen magnum. No Chiari one malformation. Atherosclerotic calcifications of the carotid siphons and vertebral arteries Maxillofacial CT: Soft tissues: No abnormalities. Bones: No fractures or bone abnormalities. Orbits: Globes: No acute abnormality. Bilateral cataract surgery changes. Extra or intraconal abnormalities: None. Paranasal sinuses: Clear Incidental findings: None Impression: Head CT: 1. No acute intracranial abnormality 2. Midline frontoparietal scalp hematoma without underlying fracture. Maxillofacial CT: 1. No acute abnormality Signed by: DR Maggie Espino M.D. on 09/12/2019 3:53 AM Dictated By: MAGGIE BRADLEY MD 2 Transcribed By: STEPHENIE on 09/12/19352 COPY TO: SAROJ MONTE DO CT BRAIN WO 2019-09-12 03:24:00 [place] [address] Patient Name: SUSANNA KIM MR #: [id number] : 1940 Age/Sex: 78/F Req #: [id number] Adm Physician: Ordered by: SAROJ MONTE DO Report #: [id number] Location: ER Room/Bed: Procedure: [id number] CT/CT BRAIN WO Exam Date: 09/12/19 Exam Time: 0245 REPORT STATUS: Signed History: Fall, hit head, and headache, Comparison studies:None Technique: Axial images were obtained to the vertex and maxillofacial region. Coronal and sagittal images reconstructed from the axial data. Intravenous contrast: None Dose modulation, iterative r econstruction, and/or weight based adjustment of the mA/kV was utilized to reduce the radiation dose to as low as reasonably achievable. Findings: Scalp/skull: Frontoparietal midline scalp hematoma. No fractures, blastic or lytic lesions. Extra-axial spaces: No masses. No fluid collections. Brain sulci: Appropriate for age. Ventricles: Normal in size and configuration. No hydrocephalus. Parenchyma: Few hypodensities of the supratentorial white matter, most commonly seen with mild chronic microvascular ischemic changes. No masses, hemorrhage, acute or chronic cortical vascular insults. Sellar/suprasellar region: CSF filled sella Craniocervical junction: Patent foramen magnum. No Chiari one malformation. Atherosclerotic calcifications of the carotid siphons and vertebral arteries Maxillofacial CT: Soft tissues: No abnormalities. Bones: No fractures or bone abnormalities. Orbits: Globes: No acute abnormality. Bilateral cataract surgery changes. Extra or intraconal abnormalities: None. Paranasal sinuses: Clear Incidental findings: None Impression: Head CT: 1. No acute intracranial abnormality 2. Midline frontoparietal scalp hematoma without underlying fracture. Maxillofacial CT: 1. No acute abnormality Signed by: DR Maggie Espino M.D. on 09/12/2019 3:53 AM Dictated By: MAGGIE BRADLEY MD 2 Transcribed By: STEPHENIE on 09/12/19352 COPY TO: SAROJ MONTE DO Bedside Glucose 2019-01-16 11:11:00 Test Item Bedside Glucose (test code = 19305-8) 135 70-120 H Meter ID: [id number] [facility] 2019-01-15 05:24:00* Test Item Value Reference Range Interpretation Comments Blood Culture (test code = 78909499) NO GROWTH AFTER 5 DAYS, FINAL REPORT [facility] CenterVancomycin Level [id number] 04:09:00* Test Item Value Reference Range Interpretation Comments Vancomycin Level Trough (test code = 4092-3) 20.7 5.0-10.0 HH Results repeated and called to CHRIS COLE RN at 0408 on 01/15/19 by In desi Pedraza. Read back and verified.[facility] CenterBlood Sdmwgpt5085-01-78 08:28:00* Test Item Value Reference Range Interpretation Comments Blood Culture (test code = 600-7) No Result Data Provided [facility] CenterImmunoglobulin [id number] 14:50:00* Test Item Value Reference Range Interpretation Comments Immunoglobulin A (test code = 2458-8) 361 64-422 [facility] CenterImmunoglobulin [id number] 14:50:00* Test Item Value Reference Range Interpretation Comments Immunoglobulin G (test code = 2465-3) 2575 105-3016 [facility] CenterImmunoglobulin [id number] 14:50:00* Test Item Value Reference Range Interpretation Comments Immunoglobulin M (test code = 2472-9) 110 26-217 Performed at: [facility] - [facility] [address] [id number] Director: Reynaldo Stanley MD, Phone: [phone] R. Darnall Army Medical Centerodium Xqhzz0055-06-35 06:30:00* Test Item Value Reference Range Interpretation Comments Sodium Level (test code = 2951-2) 140 136-145 [facility] CenterPotassium Ikprw2459-16-40 06:30:00* Test Item Value Reference Range Interpretation Comments Potassium Level (test code = 2823-3) 4.3 3.5-5.1 [facility] CenterChloride Zklrc3243-94-75 06:30:00* Test Item Value Reference Range Interpretation Comments Chloride Level (test code = 2075-0) 104 98-107 [facility] CenterCarbon Dioxide Rcmpe0908-74-28 06:30:00* Test Item Value Reference Range Interpretation Comments Carbon Dioxide Level (test code = 2028-9) 27 22-29 [facility] CenterAnion [id number] 06:30:00* Test Item Value Reference Range Interpretation Comments Anion Gap (test code = 96916-7) 13.3 8-16 [facility] CenterBlood Urea Zkeldlyu1975-85-98 06:30:00* Test Item Value Reference Range Interpretation Comments Blood Urea Nitrogen (test code = 3094-0) 21 7-26 [facility] CenterCreatinine2019-10-19 06:30:00* Test Item Value Reference Range Interpretation Comments Creatinine (test code = 2160-0) 1.04 0.57-1.11 [facility] CenterBUN/Creatinine Mhxzb2054-96-32 06:30:00* Test Item Value Reference Range Interpretation Comments BUN/Creatinine Ratio (test code = 3097-3) 20 6-25 [facility] CenterEstimat Glomerular Filtration Rate 2019-01-11 06:30:00* Test Item Value Reference Range Interpretation Comments Estimat Glomerular Filtration Rate (test code = 948474504) 51 >60 L Ranges were taken from the National Kidney Disease Education Program and the [facility] Kidney Foundation literature.Reference ranges:60 or greater: Uklcjk83-74 ( for 3 consecutive months): Chronic kidney disease 15 or less: Kidney failurePalestine Regional Medical CenterGlucose Ahbpi7534-68-65 06:30:00* Test Item Value Reference Range Interpretation Comments Glucose Level (test code = IWR8094) 162 74-118 H [facility] CenterCalcium Mrgtn3216-62-14 06:30:00* Test Item Value Reference Range Interpretation Comments Calcium Level (test code = 65515-8) 9.4 8.4-10.2 [facility] CenterTotal Rhqirqnoq8798-61-96 06:30:00* Test Item Value Reference Range Interpretation Comments Total Bilirubin (test code = 1975-2) 0.1 0.2-1.2 L [facility] CenterAspartate Amino Transf (AST/SGOT) 2019-01-11 06:30:00* Test Item Value Reference Range Interpretation Comments Aspartate Amino Transf (AST/SGOT) (test code = Aspartate Amino Transf (AST/SGOT)) 18 5-34 [facility] CenterAlanine Aminotransferase (ALT/SGPT) 2019-01-11 06:30:00* Test Item Value Reference Range Interpretation Comments Alanine Aminotransferase (ALT/SGPT) (test code = 1742-6) 16 0-55 [facility] CenterTotal Fblyury9853-03-57 06:30:00* Test Item Value Reference Range Interpretation Comments Total Protein (test code = 2885-2) 6.9 6.5-8.1 [facility] CenterAlbumin2019-10-19 06:30:00* Test Item Value Reference Range Interpretation Comments Albumin (test code = 1751-7) 2.9 3.5-5.0 L [facility] CenterGlobulin2019-10-19 06:30:00* Test Item Value Reference Range Interpretation Comments Globulin (test code = 59025-5) 4.0 2.3-3.5 H [facility] CenterAlbumin/Globulin Iuyev0791-13-41 06:30:00 * Test Item Value Reference Range Interpretation Comments Albumin/Globulin Ratio (test code = 1759-0) 0.7 0.8-2.0 L [facility] CenterAlkaline Bdcftffskkm4365-20-39 06:30:00* Test Item Value Reference Range Interpretation Comments Alkaline Phosphatase (test code = 6768-6) 101 40-150 [facility] CenterWhite Blood Ezrbq2348-30-69 06:05:00* Test Item Value Reference Range Interpretation Comments White Blood Count (test code = 6690-2) 9.34 4.8-10.8 [facility] CenterRed Blood Egppy6253-21-14 06:05:00* Test Item Value Reference Range Interpretation Comments Red Blood Count (test code = 789-8) 3.39 3.6-5.1 L [facility] CenterHemoglobin2019-10-19 06:05:00* Test Item Value Reference Range Interpretation Comments Hemoglobin (test code = 82933-1) 10.5 12.0-16.0 L [facility] CenterHematocrit2019-10-19 06:05:00* Test Item Value Reference Range Interpretation Comments Hematocrit (test code = 4544-3) 33.3 34.2-44.1 L [facility] CenterMean Corpuscular Ehrnlw8799-56-31 06:05:00* Test Item Value Reference Range Interpretation Comments Mean Corpuscular Volume (test code = 787-2) 98.2 81-99 [facility] CenterMean Corpuscular Udlhwtibcx0870-81-75 06:05:00* Test Item Value Reference Range Interpretation Comments Mean Corpuscular Hemoglobin (test code = 785-6) 31.0 28-32 [facility] CenterMean Corpuscular Hemoglobin Concent 2019-01-11 06:05:00* Test Item Value Reference Range Interpretation Comments Mean Corpuscular Hemoglobin Concent (test code = 786-4) 31.5 31-35 [facility] CenterRed Cell Distribution Fnjdm7176-19-98 06:05:00* Test Item Value Reference Range Interpretation Comments Red Cell Distribution Width (test code = 30345-4) 13.4 11.7 -14.4 [facility] CenterPlatelet Cbieh5698-21-68 06:05:00* Test Item Value Reference Range Interpretation Comments Platelet Count (test code = 777-3) 254 140-360 [facility] CenterNeutrophils (%) (Auto)2019-01-11 06:05:00 * Test Item Value Reference Range Interpretation Comments Neutrophils (%) (Auto) (test code = 70239-2) 85.5 38.7-80.0 H [facility] CenterLymphocytes (%) (Auto)2019-01-11 06:05:00 * Test Item Value Reference Range Interpretation Comments Lymphocytes (%) (Auto) (test code = 736-9) 9.7 18.0-39.1 L [facility] CenterMonocytes (%) (Auto)2019-01-11 06:05:00* Test Item Value Reference Range Interpretation Comments Monocytes (%) (Auto) (test code = 5905-5) 4.2 4.4-11.3 L [facility] CenterEosinophils (%) (Auto)2019-01-11 06:05:00 * Test Item Value Reference Range Interpretation Comments Eosinophils (%) (Auto) (test code = 713-8) 0.0 0.0-6.0 [facility] CenterBasophils (%) (Auto)2019-01-11 06:05:00* Test Item Value Reference Range Interpretation Comments Basophils (%) (Auto) (test code = 706-2) 0.1 0.0-1.0 [facility] CenterIM GRANULOCYTES %2019-01-11 06:05:00* Test Item Value Reference Range Interpretation Comments IM GRANULOCYTES % (test code = IM GRANULOCYTES %) 0.5 0.0- 1.0 [facility] CenterNeutrophils # (Auto)2019-01-11 06:05:00* Test Item Value Reference Range Interpretation Comments Neutrophils # (Auto) (test code = 751-8) 8.0 2.1-6.9 [facility] CenterLymphocytes # (Auto)2019-01-11 06:05:00* Test Item Value Reference Range Interpretation Comments Lymphocytes # (Auto) (test code = 59616-1) 0.9 1.0-3.2 L [facility] CenterMonocytes # (Auto)2019-01-11 06:05:00* Test Item Value Reference Range Interpretation Comments Monocytes # (Auto) (test code = 742-7) 0.4 0.2-0.8 [facility]Eosinophils # (Auto)2019-01-11 06:05:00* Test Item Value Reference Range Interpretation Comments Eosinophils # (Auto) (test code = 711-2) 0.0 0.0-0.4 [facility] CenterBasophils # (Auto)2019-01-11 06:05:00* Test Item Value Reference Range Interpretation Comments Basophils # (Auto) (test code = 704-7) 0.0 0.0-0.1 [facility] CenterAbsolute Immature Granulocyte (auto 2019-01-11 06:05:00* Test Item Value Reference Range Interpretation Comments Absolute Immature Granulocyte (auto (nenita t code = Absolute Immature Granulocyte (auto) 0.05 0-0.1 [facility] CenterCreatine Kinase [id number] 19:06:00* Test Item Value Reference Range Interpretation Comments Creatine Kinase MB (test code = 05744-5) 1.80 0-5.0 [facility] CenterTroponin [id number] 19:06:00* Test Item Value Reference Range Interpretation Comments Troponin I (test code = QPV4847) 0.001 0-0.300 [facility] CenterCreatine Oskhjw6981-92-83 19:02:00* Test Item Value Reference Range Interpretation Comments Creatine Kinase (test code = 2157-6) 220 29-168 H [facility] CenterUS PELVIS COMPLETE NON [id number] 16:20:00 [facility] [address] [place] [address] Patient Name: SUSANNA KIM MR #: [id number] : 1940 Age/Sex: 78/F Req #: [id number] Adm Physician: ILA SINGH MD Ordered by: KRISTINA BEAL MD Report #: [id number] Location: MED/SURG2 Room/Bed: [facility] Procedure: 1018- 0013 US/US PELVIS COMPLETE NON OB Exam Date: Exam T shayne: REPORT STATUS: Signed E xam: Pelvic ultrasound. History: Abdominal pain Comparison: Abdomina l ultrasound of the same day. Findings/Impression: Transabdominal grayscale and color Doppler pelvic ultrasound. Status post hysterectomy. No remarkable findings in the right or left adnexa. Signed by: Krystal Del Rosario MD on 4:21 PM Dictated By: KRYSTAL DEL ROSARIO MD 20 Transcribed By: STEPHENIE on 01/10/191620 COPY TO: KRISTINA BEAL MD US ABDOMEN [id number] 16:17:00 [place] [address] Patient Name: SUSANNA KIM MR #: [id number] : 1940 Age/Sex: 78/F Req #: [id number] Adm Physician: ILA SINGH MD Ordered by: KRISTINA BEAL MD Report #: [id number] Location: MED/SURG2 Room/Bed: [facility] Procedure: 1018- 0012 US/US ABDOMEN COMPLETE Exam Date: Exam Time: REPORT STATUS: Signed EXAM: US [place] WISE COMPLETE DATE: 01/10/2019 12:00 AM INDICATION: Abdominal pain C OMPARISON: None TECHNIQUE: Transverse and longitudinal ruano scale and color d oppler sonographic images of the upper abdomen were obtained. FINDINGS: There is no evidence of fluid or masses seen in the area of clinical concern in the right lower quadrant. LIVER 13.9 cm in the right midclavicu lar line. Normal echogenicity of the liver with normal contour, no masses. SPLEEN 10.8 cm in maximum diameter. Normal echogenicity, no masses. G ALLBLADDER Status post cholecystectomy. BILE DUCTS No intra nor extra-h epatic biliary dilation. Common bile duct measures 3 mm PANCREAS: Not wel l visualized due to overlying bowel gas. RIGHT KIDNEY: 10.8 cm Echogenici ty: Normal Collecting System: No hydronephrosis Stones: None Cyst/Mass: None LEFT KIDNEY: 9.9 cm Echogenicity: Normal Collecting System: No hy dronephrosis Stones: None Cyst/Mass: None VESSELS: Aorta: Not well-v isualized due to overlying bowel gas. Inferior Vena Cava: Visualized portions are normal Main Portal Vein: 0.9 cm, normal size with hepatopetal flow. F REE FLUID: None IMPRESSION: Status post cholecystectomy. No renal ca lculi or hydronephrosis. Signed by: Krystal Del Rosario MD on 01/10/2019 4:19 PM Dictated By: KRYSTAL DEL ROSARIO MD 18 COPY TO: KRISTINA BEAL MD Vitamin B12 Oduri0787-87-31 10:21:00* Test Item Value Reference Range Interpretation Comments Vitamin B12 Level (test code = 14920-9) 1226 213-816 H [facility] CenterFree Thyroxine Qkojx7965-08-17 10:21:00* Test Item Value Reference Range Interpretation Comments Free Thyroxine Index (test code = 19735-8) 1.9182 1.4-3.8 [facility] CenterThyroxine (T4)2019-01-10 10:21:00* Test Item Value Reference Range Interpretation Comments Thyroxine (T4) (test code = 3026-2) 6.22 4.5-10.9 Our current method for Total T4 is not recommended for use as the only marker fo r evaluating patients for thyroid disorders.[facility] CenterTriiodothyronine (T3) Cikknz3113-90-63 10:21:00* Test Item Value Reference Range Interpretation Comments Triiodothyronine (T3) Uptake (test code = 3050-2) 30.84 22.5 -37.0 [facility] CenterThyroid Stimulating Hormone (TSH) 2019-01-10 10:21:00* Test Item Value Reference Range Interpretation Comments Thyroid Stimulating Hormone (TSH) (test code = 96644-9) 0.731 0.350-4.940 [facility] CenterIron Kzani2443-35-58 09:42:00* Test Item Value Reference Range Interpretation Comments Iron Level (test code = 2498-4) 33 50-170 L [facility] CenterTotal Iron Binding Mnxrzrel5769-93-71 09:42:00* Test Item Value Reference Range Interpretation Comments Total Iron Binding Capacity (test code = 2500-7) 318 261-4 78 [facility] CenterPercent Iron Huikjjwxay0076-82-04 09:42:00* Test Item Value Reference Range Interpretation Comments Percent Iron Saturation (test code = 2502-3) 10 15-50 L [facility] CenterTransferrin2019-10-18 09:42:00* Test Item Value Reference Range Interpretation Comments Transferrin (test code = 3034-6) 227 180-382 [facility] CenterCT CHEST OK1729-34-46 02:56:00 [facility] [address] [place] [address] Patient Name: SUSANNA KIM MR #: [id number] : 1940 Age/Sex: 78/F Req #: [id number] Adm Physician: Ordered by: GILLES ROGERS MD Report #: [id number] Location: ER Room/Bed: Procedure: 1018 -0002 CT/CT CHEST WO Exam Date: 01/10/19 Exam Time: 219 REPORT STATUS: Signed EXAM: CT Chest WITHOUT contrast INDICATION: EVAL FRO PULMONARY EDEMA [id number] Y COMPARISON: Same day chest x-ray TECHNIQUE: Chest was scanned utilizing a multidetector helical scanner from the lung apex thro ugh the level of the adrenal glands without administration of IV contrast. Abs ence of intravenous contrast decreases sensitivity for detection of lymphadeno david and vascular pathology. Coronal and sagittal reformations were obtained. Routine protocol was performed. IV CONTRAST: None COMPLICATIONS: No ne RADIATION DOSE: Total DLP: 485.28 mGy*cm Estimated eff ective dose: (DLP x 0.014 x size factor) mSv CTDIvol has been reviewed. I t is below the limits set by the Radiation Protocol Committee (RPC). FINDINGS: LINES/ TUBES: None. LUNGS AND AIRWAYS: Small multifo jose martin bilateral upper lobe airspace opacities, right greater than left. Mild vas cular congestion. Mild bibasilar consolidations. Airways are normal. PLEU RA: Trace right pleural effusion. HEART AND MEDIASTINUM: The thyroid gland is normal. No mediastinal, hilar or axillary lymphadenopathy. The heart is b orderline in size.. There is no pericardial effusion. Main pulmonary artery m easures 2.5 cm posterior cerebral pulmonary hypertension. Coronary artery calc ifications with stents in place. UPPER ABDOMEN: Small hiatal hernia. Atroph ic pancreas. BONES: Advanced degenerative changes of the right shoulder wit h right humeral head anchor screws in place. Degenerative changes of thoracic spine. SOFT TISSUES: Unremarkable. IMPRESSION: Small bilateral upper lobe patchy airspace opacities, right greater than left, concerning for multi focal developing pneumonia. Mild pulmonary vascular congestion. Enlarged main pulmonary artery. Trace right pleural effusion. Bibasilar mild consolidation s, likely atelectasis. Underlying pneumonia cannot be entirely excluded. Signed by: Dr. Sukhi Cespedes MD on 01/10/2019 3:07 AM Dictated By: SUKHI CESPEDES MD 6 Transc ribed By: STEPHENIE on 01/10/19306 COPY TO: GILLES ROGERS MD B-Type Natriuretic Ptojenz1126-30-53 01:56:00* Test Item Value Reference Range Interpretation Comments B-Type Natriuretic Peptide (test code = 78882-0) 15.8 0-[address] [facility] SINGLE (PORTABLE)2019-01-10 01:46:00 [facility] [address] [place] [address] Patient Name: SUSANNA KIM MR #: [id number] : 1940 Age/Sex: 78/F Req #: [id number] Adm Physician: Ordered by: GILLES ROGERS MD Report #: [id number] Location: ER Room/Bed: Procedure: 1018 -0011 DX/CHEST SINGLE (PORTABLE) Exam Date: 01/10/19 Exam Time: 109 REPORT STATUS: Sig christiano EXAMINATION: CHEST SINGLE (PORTABLE) INDICATION: sob [id number] 0110 Y COMPARISON: None FINDINGS: AP view TUBES and LINES: None. LUNGS: Limited by body habitus and low lung vo lumes. Mildly prominent interstitial lung markings. PLEURA: No signific ant pleural effusion or pneumothorax. HEART AND MEDIASTINUM: The cardiac s ilhouette is enlarged on this AP view. BONES AND SOFT TISSUES: No acut e osseous lesion. Right humeral head anchor screws. Soft tissues are unremarka ble. UPPER ABDOMEN: No free air under the diaphragm. IMPRESSION: Limited as above. Mildly prominent interstitial lung markings, accentuated by lower volumes, suggestive of mild interstitial edema. Signed by: Dr. Sukhi Cespedes MD on 01/10/2019 1:47 AM Dictated By: SUKHI CESPEDES MD E lectronically Signed By: SUKHI CESPEDES MD on 01/10/19146 Transcribed By: MC PATHAK on 01/10/19146 COPY TO: GILLES ROGERS MD
[2019-10-25 04:18] LABS: BILIRUBIN,URINE NEGATIVE (NEGATIVE); CLARITY,URINE CLOUDY (CLEAR); COLOR,URINE YELLOW (YELLOW); KETONES,URINE NEGATIVE (NEGATIVE); LEUKOCYTE ESTERASE ,URINE TRACE (NEGATIVE); NITRITE,URINE POSITIVE (NEGATIVE); PROTEIN,URINE DIPSTICK NEGATIVE (NEGATIVE); URINE UROBILINOGEN 0.2 mg/dL (0.2 - 1)
[2019-10-25 04:21] LABS: BACTERIA,URINE MANY /HPF; EPITHELIAL CELLS,URINE FEW /LPF; TRANSITIONAL EPI CELLS,URINE FEW; WBC,URINE (MAN) >50 /HPF (0-5)
== END 2019-10-25 04:37 | disposition home or self-care (01) ==
LOC: ER 02:39
DX: M54.31 Sciatica, right side (principal); N39.0 Urinary tract infection, site not specified; I10 Essential (primary) hypertension; E11.9 Type 2 diabetes mellitus without complications; E78.5 Hyperlipidemia, unspecified; Z85.42 Personal history of malignant neoplasm of other parts of uterus; Z96.653 Presence of artificial knee joint, bilateral
CPT/HCPCS: 81001; 99283

== ENCOUNTER 2020-02-25 09:29 | Emergency (ER) | payer MEDICARE, OTHER ==
[~2020-02-25] VITALS: Ht 149.9 cm; Wt 130.6 kg
[2020-02-25] MEDS ORDERED: ACETAMINOPHEN 325 MG TAB PO STA (09:35)
--- OUTSIDE RECORDS SUMMARY | 2020-02-25 09:35 | XMS REPORT | Continuity of Care Document ---
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
--- OUTSIDE RECORDS SUMMARY | 2020-02-25 09:36 | XMS REPORT | Continuity of Care Document ---
Author Author [facility] t Organization [facility] Address [address] [place] [address] Phone Unavailable Care Team Providers Care Vacuum Worker Name Role Phone ERICKA TERRELL, Merritt LAGUNAS PCP SAROJ MONTE Attphys Unavailable SINGH, Merritt THORPE Attphys Unavailable SINGH, A ILA Admphys Unavailable Payers Payer Name Policy Type Policy Number Effective Date Expiration Date S hong [employer] [id number] 2011 00:00:00 [facility] [employer] [id number] 2005 00:00:00 [facility] Problems Condition Name Condition Details Condition Category Status Onset Date Resolution Date Last Treatment Date Treating Clinician Comments Source Multifocal pneumonia Multifocal pneumonia Problem Active [facility] Hypercholesteremia Hype rcholesteremia Active Problem 08/24/2017 Cristofer Alex Demetriusoudi Problem Active 2017-08-24 02:46:28 Gregory Fernandez Abnormal EKG Abno rmal EKG Active Problem 08/24/2017 Cristofer Johnson Demetriusoudi Problem Active 2017-08-24 02:46:28 Gregory Fernandez TIA (transient ischemic attack) TIA (transient ischemic attack) Active Problem 08/24/2017 Mohamed O Demetriusoudi Problem Active 2017-08-24 02:46:28 Gregory Fernandez Shortness of breath Shor tness of breath Active Problem 08/24/2017 Cristofer Johnson Demetriusoudi Problem Active 2017-08-24 02:46:28 Gregory Fernandez 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 Diagnosis 08/24/2017 Cristofer Watters Diagnosis Active 2017-08-24 02:46:28 [facility] Patient unable to exercise Pat ient unable to exercise Active Problem 08/24/2017 Cristofer Watters Problem Active 2017-08-24 02:46:28 [facility] Morbid obesity due to excess calories Morbid obesity due to excess calories Active Diagnosis 08/24/2017 Cristofer Watters Diagnosis Active 2017-08-24 02:46:28 [facility] Hypertensive heart disease without heart failure Hypertensive heart disease without heart failure Active Problem 08/24/2017 Cristofer Watters Problem Active 2017-08-24 02:46:28 [facility] Aortic valve sclerosis Aort ic valve sclerosis Active Problem 08/24/2017 Cristofer Watters Problem Active 20 10-09-00 02:46:28 [facility] Varicose veins Vari cose veins Active Problem 08/24/2017 Cristofer Watters Problem Active 2017-08-24 02:46:28 [facility] Abnormal result of other cardiovascular function study Abnormal result of other cardiovascular function study Active Problem 08/24/2017 Cristofer Watters Problem Active 2017-08-24 02:46:28 [facility] Precordial pain Prec ordial pain Active Problem 08/24/2017 Cristofer Watters Problem Active 2017-08-24 02:46:28 [facility] Acquired hypothyroidism Acqu ired hypothyroidism Active Diagnosis 08/24/2017 Cristofer Watters Diagnosis Active 2017-08-24 02:46:28 [facility] Urinary incontinence Urin rafita incontinence Active Diagnosis 08/24/2017 Cristofer Watters Diagnosis Active 2017-08-24 02:46 :28 [facility] Allergies, Adverse Reactions, Alerts Allergy Name Allergy Type Status Severity Reaction(s) Onset Date Inacti ve Date Treating Clinician Comments Source Penicillin Allergy to Substance Active Moderate RASH 2019-01-15 00:00:0 0 [facility] Penicillin Penicillin Active Anaphylaxis 2017-02[facility]01 [facility] Dem[facility]ol Active Dizziness 2017-02-01 00:00:00 [facility] Codeine Phosphate Codeine Phosphate Active Jitters 2017-02-01 00:0 0:00 [facility] meperidine HCl Allergy to Substance Active 2013-04-11 00:00 :00 [facility] Morphine Allergy to Substance Active Severe HALLUCINATIONS 2013 00:00:00 [facility] Codeine Allergy to Substance Active Moderate SHAKES 2013-04-11 00:00:00 [facility] meperidine HCl DA Active U 2013-01-17 00:00:00 [facility] Penicillins DA Active U 2013-01-17 00:00:00 [facility] morphine DA Active RI 2013-01-17 00:00:00 [facility] Medications Ordered Medication Name Filled Medication Name Start Date Stop Da te Current Medication? Ordering Clinician Indication Dosage Frequency Signature (SIG) Comments Components Source Klor-Con 10 2017-08-24 02:46:28 Yes Ahmad Jeroudi 1 tablet [facility] Gabapentin 2017-08-24 02:46:28 Yes Ahmad Jeroudi 1 capsule [facility] Pravastatin Sodium 2017-08-24 02:46:28 Yes Ahmad Jeroudi 1 tablet [facility] Lasix 2017-08-24 02:46:28 Yes Ahmad Jeroudi 1 tab let [facility] Levothyroxine Sodium 2017-08-24 02:46:28 Yes Mariaelena Romoou di 1 tablet on an empty stomach in the morning [facility] Aspirin Adult Low Strength 2017-08-24 02:46:28 Yes Ahmad Jeroudi 1 tablet [facility] Aspirin (Aspir 81) 81 Mg Tablet. Aspirin (Aspir 81) 81 Mg Tablet. Yes 81 Daily [facility] Bupropion Hcl (Bupropion Hcl Sr) 200 Mg Tablet.er Bupr opion Hcl (Bupropion Hcl Sr) 200 Mg Tablet.er Yes 200 Daily [facility] Cilostazol 100 Mg Tablet Cilostazol 100 Mg Tablet Yes 100 Twice A Day [facility] Citalopram Hydrobromide (Citalopram Hbr) 20 Mg Tablet Citalopram Hydrobromide (Citalopram Hbr) 20 Mg Tablet Yes 20 Daily [facility] Furosemide 40 Mg Tablet Furosemide 40 Mg Tablet Yes 40 Daily [facility] Gabapentin 300 Mg Capsule Gabapentin 300 Mg Capsule Yes 300 Twice A Day [facility] Levofloxacin (Levaquin) 500 Mg Tablet Levofloxacin (Levaquin) 500 M g Tablet Yes 500 Daily [facility] Levothyroxine Sodium 150 Mcg Tablet Levothyroxine Sodium 150 Mcg Tabl et Yes .125 Daily [facility] Losartan Potassium 100 Mg Tablet Losartan Potassium 100 Mg Tablet Yes 100 Daily [facility] Mirabegron (Myrbetriq) 50 Mg Tab.er.24h Mirabegron (Myrbetri q) 50 Mg Tab.er.24h Yes 50 Daily [facility] Potassium Chloride (Klor-Con 10) 10 Meq Tablet.er Pota ssium Chloride (Klor-Con 10) 10 Meq Tablet.er Yes Daily [facility] Pravastatin Sodium 20 Mg Tablet Pravastatin Sodium 20 Mg Tablet Yes 20 Daily [facility] Vit D3/Folic Acid/B2/B6/B12 (Folgard Tablet) 1 Each Ta blet Vit D3/Folic Acid/B2/B6/B12 (Folgard Tablet) 1 Each Tablet Yes Daily [facility] Saccharomyces Boulardii (Florastor) 250 Mg Capsule, 25 0 Mg Oral Saccharomyces Boulardii (Florastor) 250 Mg Capsule, 250 Mg Oral 2019-01-10 00:00:00 No 250 Twice A Day [facility] Nebivolol Hcl (Bystolic) 5 Mg Tablet, 5 Mg Oral Nebivo lol Hcl (Bystolic) 5 Mg Tablet, 5 Mg Oral 2015-05-24 00:00:00 No 5 Daily [facility] Ciprofloxacin Hcl 750 Mg Tablet, 750 Mg Oral Ciproflox acin Hcl 750 Mg Tablet, 750 Mg Oral 2015-05-17 00:00:00 No 750 Daily [facility] Promethazine Hcl 12.5 Mg Tablet, 12.5 Mg Oral Prometha zine Hcl 12.5 Mg Tablet, 12.5 Mg Oral 2015-05-17 00:00:00 No 12.5 Daily [facility] Tramadol Hcl (Ultram 50MG*) 50 Mg Tab, 50 Mg Oral Tram adol Hcl (Ultram 50MG*) 50 Mg Tab, 50 Mg Oral 2015-05-17 00:00:00 No 50 Four Times Daily [facility] Acetaminophen/Hydrocodone Bitart (Sophia 10MG-325MG*) 1 Ea Tab, 1 Tab Oral Acetaminophen/Hydrocodone Bitart (Sophia 10MG-325MG*) 1 Ea Tab, 1 Tab Oral 2013-04-15 00:00:00 No 1 Every 4 Hours [facility] Hydrocodone Bit/Acetaminophen (Hydrocodo n-Acetaminophn 10-325) 1 Each Tablet, Mg Oral Hydrocodone Bit/Acetaminophen (Hydrocodo n-Acetaminophn 10-325) 1 Each Tablet, Mg Oral 2013-04-15 00:00:00 No Daily [facility] Hydrocodone Bit/Acetaminophen (Sophia 10-325 Tablet) 1 Each Tablet, Mg Oral Hydrocodone Bit/Acetaminophen (Sophia 10-325 Tablet) 1 Each Tablet, Mg Oral 2013-04-15 00:00:00 No Daily [facility] Lubiprostone (Amitiza) 24 Mcg Capsule, 24 Mg Oral Lubi prostone (Amitiza) 24 Mcg Capsule, 24 Mg Oral 2013-04-15 00:00:00 No 24 Woody y [facility] Meclizine Hcl 25 Mg Tablet, 25 Mg Oral Meclizine Hcl 25 Mg Table t, 25 Mg Oral 2013-04-15 00:00:00 No 25 Daily [facility] Metaxalone 800 Mg Tablet, 800 Mg Oral Metaxalone 800 Mg Tablet, 800 Mg Oral 2013-04-15 00:00:00 No 800 Daily [facility] Metaxalone (Skelaxin) 800 Mg Tablet, 800 Mg Oral Metax alone (Skelaxin) 800 Mg Tablet, 800 Mg Oral 2013-04-15 00:00:00 No 800 Woody y [facility] Metronidazole 250 Mg Tablet, 250 Mg Oral Metronidazole 250 Mg Tablet, 250 Mg Oral 2013-04-15 00:00:00 No 250 Daily [facility] Vital Signs Vital Name Observation Time Observation Value Comments Source Weight 2017-02-01 19:00:00 [facility] Height 2017-02-01 19:00:00 [facility] Temperature Oral (F) 2017-02-01 19:00:00 98.6 F [facility] Heart Rate 2017-02-01 19:00:00 [facility] Diastolic (mm Hg) 2017-02-01 19:00:00 [facility] Systolic (mm Hg) 2017-02-01 19:00:00 [facility] Weight 2016-08-17 19:00:00 [facility] Height 2016-08-17 19:00:00 [facility] Temperature Oral (F) 2016-08-17 19:00:00 98.6 F [facility] Heart Rate 2016-08-17 19:00:00 [facility] Diastolic (mm Hg) 2016-08-17 19:00:00 [facility] Systolic (mm Hg) 2016-08-17 19:00:00 [facility] Procedures Procedure Date / Time Performed Performing Clinician [facility] e Computed tomography of chest without contrast 2019-01-10 00: 00:00 GILLES ROGERS [facility] US abdomen complete 2019-01-10 00:00:00 [facility] Complete non-obstetrical ultrasound of pelvis 2019-01-10 [facility]: [facility] Start Date/Time End Date/Time Encounter Type Ad[email or web address] Department Encounter ID Source 2019-01-10 03:27:00 2019-01-16 14:05:00 Discharged Inpatient 1 ILA SINGH [facility] [id number] [facility] 2017-02-01 14:00:00 2017-02-01 14:00:00 Outpatient Cristofer Watters MD [place] [id number] [employer] 2016-08-17 14:00:00 2016-08-17 14:00:00 Outpatient Cristofer Watters MD [place] [id number] [facility] Results Test Description Test Time Test Comments Results Result Comments Source CHEST 2 VIEWS 2019-09-12 04:08:00 [facility] [address] [id number] Patient Name: SUSANNA KIM MR #: [id number] : 1940 Age/Sex: 78/F Req #: [id number] Adm Physician: Ordered by: SAROJ MONTE DO Report #: [id number] Location: ER Room/Bed: Procedure: [id number] DX/CHEST 2 VIEWS Exam Date: 09/12/19 Exam [...] DO CT MAXIO FAC/PARANAS WO 2019-09-12 03:24:00 [address] [id number] Patient Name: SUSANNA KIM MR #: [id number] : 1940 Age/Sex: 78/F Req #: [id number] Adm Physician: Ordered by: SAROJ MONTE DO Report #: [id number] Location: ER Room/Bed: Procedure: CT/CT MAXIO FAC/PARANAS WO Exam Date: 09/12/19 Exam Time: 0245 [...] By: MAGGIE BRADLEY MD 2 Transcribed By: STEPHNEIE on 09/12/19352 COPY TO: SAROJ MONTE DO CT BRAIN WO 2019-09-12 03:24:00 [id number] [address] Patient Name: SUSANNA KIM MR #: [id number] : 1940 Age/Sex: 78/F Req #: [id number] Adm Physician: Ordered by: SAROJ MONTE DO Report #: [id number] Location: ER Room/Bed: Procedure: [id number] CT/CT BRAIN WO Exam Date: 09/12/19 Exam [...] Test Item Bedside Glucose (test code = 54385-5) 135 70-120 H Meter ID: [id number] [facility] 2019-01-15 05:24:00* Test Item Value Reference Range Interpretation Comments Blood Culture (test code = 69852698) NO GROWTH AFTER 5 DAYS, FINAL REPORT [facility] CampusVancomycin Level [id number] 04:09:00* Test Item Value Reference Range Interpretation Comments Vancomycin Level Trough (test code = 4092-3) 20.7 5.0-10.0 HH Results repeated and called to CHRIS COLE RN at 0408 on 01/15/19 by In desi Pedraza. Read back and verified.[facility] CampusBlood [id number] 08:28:00* Test Item Value Reference Range Interpretation Comments Blood Culture (test code = 600-7) No Result Data Provided [facility] CampusImmunoglobulin [id number] 14:50:00* Test Item Value Reference Range Interpretation Comments Immunoglobulin A (test code = 2458-8) 361 64-422 [facility] CampusImmunoglobulin [id number] 14:50:00* Test Item Value Reference Range Interpretation Comments Immunoglobulin G (test code = 2465-3) 0279 330-9787 [facility] CampusImmunoglobulin [id number] 14:50:00* Test Item Value Reference Range Interpretation Comments Immunoglobulin M (test code = 2472-9) 110 26-217 Performed at: [facility] [address] [id number] Director: Reynaldo Stanley MD, Phone: [phone] Southlake Hospitalodium Hjfrt6595-18-00 06:30:00* Test Item Value Reference Range Interpretation Comments Sodium Level (test code = 2951-2) 140 136-145 [facility] CampusPotassium Cohcb5530-31-83 06:30:00* Test Item Value Reference Range Interpretation Comments Potassium Level (test code = 2823-3) 4.3 3.5-5.1 [facility] CampusChloride [id number] 06:30:00* Test Item Value Reference Range Interpretation Comments Chloride Level (test code = 2075-0) 104 98-107 [facility] CampusCarbon Dioxide [id number] 06:30:00* Test Item Value Reference Range Interpretation Comments Carbon Dioxide Level (test code = 2028-9) 27 22-29 [facility] CampusAnion [id number] 06:30:00* Test Item Value Reference Range Interpretation Comments Anion Gap (test code = 17856-9) 13.3 8-16 [facility] CampusBlood Urea Uiwxbyzg6820-57-27 06:30:00* Test Item Value Reference Range Interpretation Comments Blood Urea Nitrogen (test code = 3094-0) 21 7-26 [facility] CampusCreatinine2019-10-19 06:30:00* Test Item Value Reference Range Interpretation Comments Creatinine (test code = 2160-0) 1.04 0.57-1.11 [facility] CampusBUN/Creatinine Fpzaz2759-10-45 06:30:00* Test Item Value Reference Range Interpretation Comments BUN/Creatinine Ratio (test code = 3097-3) 20 6-25 [facility] CampusEstimat Glomerular Filtration Rate 2019-01-11 06:30:00* Test Item Value Reference Range Interpretation Comments Estimat Glomerular Filtration Rate (test code = 887074953) 51 >60 L Ranges were taken from the National Kidney Disease Education Program and the [employer] literature.Reference ranges:60 or greater: Oesccj61-31 ( for 3 consecutive months): Chronic kidney disease 15 or less: Kidney failureThe [facility] of [facility] CampusGlucose Dklxc7999-50-32 06:30:00* Test Item Value Reference Range Interpretation Comments Glucose Level (test code = LSC9954) 162 74-118 H [facility] CampusCalcium [id number] 06:30:00* Test Item Value Reference Range Interpretation Comments Calcium Level (test code = 76622-9) 9.4 8.4-10.2 [facility] CampusTotal Dnyqfrmqn9271-75-35 06:30:00* Test Item Value Reference Range Interpretation Comments Total Bilirubin (test code = 1975-2) 0.1 0.2-1.2 L [facility] CampusAspartate Amino Transf (AST/SGOT) 2019-01-11 06:30:00* Test Item Value Reference Range Interpretation Comments Aspartate Amino Transf (AST/SGOT) (test code = Aspartate Amino Transf (AST/SGOT)) 18 5-34 [facility] CampusAlanine Aminotransferase (ALT/SGPT) 2019-01-11 06:30:00* Test Item Value Reference Range Interpretation Comments Alanine Aminotransferase (ALT/SGPT) (test code = 1742-6) 16 0-55 [facility] CampusTotal Jojfsqb8711-94-68 06:30:00* Test Item Value Reference Range Interpretation Comments Total Protein (test code = 2885-2) 6.9 6.5-8.1 [facility] CampusAlbumin2019-10-19 06:30:00* Test Item Value Reference Range Interpretation Comments Albumin (test code = 1751-7) 2.9 3.5-5.0 L [facility] CampusGlobulin2019-10-19 06:30:00* Test Item Value Reference Range Interpretation Comments Globulin (test code = 02365-8) 4.0 2.3-3.5 H [facility] CampusAlbumin/Globulin [id number] 06:30:00 * Test Item Value Reference Range Interpretation Comments Albumin/Globulin Ratio (test code = 1759-0) 0.7 0.8-2.0 L [facility] CampusAlkaline Zkospzsftzl5075-72-07 06:30:00* Test Item Value Reference Range Interpretation Comments Alkaline Phosphatase (test code = 6768-6) 101 40-150 [facility] CampusWhite Blood [id number] 06:05:00* Test Item Value Reference Range Interpretation Comments White Blood Count (test code = 6690-2) 9.34 4.8-10.8 [facility] CampusRed Blood Mvkkx8243-75-03 06:05:00* Test Item Value Reference Range Interpretation Comments Red Blood Count (test code = 789-8) 3.39 3.6-5.1 L [facility] CampusHemoglobin2019-10-19 06:05:00* Test Item Value Reference Range Interpretation Comments Hemoglobin (test code = 55012-7) 10.5 12.0-16.0 L [facility] CampusHematocrit2019-10-19 06:05:00* Test Item Value Reference Range Interpretation Comments Hematocrit (test code = 4544-3) 33.3 34.2-44.1 L [facility] CampusMean Corpuscular Xabkwn6771-75-07 06:05:00* Test Item Value Reference Range Interpretation Comments Mean Corpuscular Volume (test code = 787-2) 98.2 81-99 [facility] CampusMean Corpuscular Jglimqrpqj3317-80-91 06:05:00* Test Item Value Reference Range Interpretation Comments Mean Corpuscular Hemoglobin (test code = 785-6) 31.0 28-32 [facility] CampusMean Corpuscular Hemoglobin Concent 2019-01-11 06:05:00* Test Item Value Reference Range Interpretation Comments Mean Corpuscular Hemoglobin Concent (test code = 786-4) 31.5 31-35 [facility] CampusRed Cell Distribution Irvfu0025-51-92 06:05:00* Test Item Value Reference Range Interpretation Comments Red Cell Distribution Width (test code = 27675-2) 13.4 11.7 -14.4 [facility] CampusPlatelet Xgfvw5453-64-62 06:05:00* Test Item Value Reference Range Interpretation Comments Platelet Count (test code = 777-3) 254 140-360 [facility] CampusNeutrophils (%) (Auto)2019-01-11 06:05:00 * Test Item Value Reference Range Interpretation Comments Neutrophils (%) (Auto) (test code = 17047-1) 85.5 38.7-80.0 H [facility] CampusLymphocytes (%) (Auto)2019-01-11 06:05:00 * Test Item Value Reference Range Interpretation Comments Lymphocytes (%) (Auto) (test code = 736-9) 9.7 18.0-39.1 L [facility] CampusMonocytes (%) (Auto)2019-01-11 06:05:00* Test Item Value Reference Range Interpretation Comments Monocytes (%) (Auto) (test code = 5905-5) 4.2 4.4-11.3 L [facility] CampusEosinophils (%) (Auto)2019-01-11 06:05:00 * Test Item Value Reference Range Interpretation Comments Eosinophils (%) (Auto) (test code = 713-8) 0.0 0.0-6.0 [facility] CampusBasophils (%) (Auto)2019-01-11 06:05:00* Test Item Value Reference Range Interpretation Comments Basophils (%) (Auto) (test code = 706-2) 0.1 0.0-1.0 [facility] CampusIM GRANULOCYTES %2019-01-11 06:05:00* Test Item Value Reference Range Interpretation Comments IM GRANULOCYTES % (test code = IM GRANULOCYTES %) 0.5 0.0- 1.0 [facility] CampusNeutrophils # (Auto)2019-01-11 06:05:00* Test Item Value Reference Range Interpretation Comments Neutrophils # (Auto) (test code = 751-8) 8.0 2.1-6.9 H [facility] CampusLymphocytes # (Auto)2019-01-11 06:05:00* Test Item Value Reference Range Interpretation Comments Lymphocytes # (Auto) (test code = 57424-5) 0.9 1.0-3.2 L [facility] CampusMonocytes # (Auto)2019-01-11 06:05:00* Test Item Value Reference Range Interpretation Comments Monocytes # (Auto) (test code = 742-7) 0.4 0.2-0.8 [facility] CampusEosinophils # (Auto)2019-01-11 06:05:00* Test Item Value Reference Range Interpretation Comments Eosinophils # (Auto) (test code = 711-2) 0.0 0.0-0.4 [facility] CampusBasophils # (Auto)2019-01-11 06:05:00* Test Item Value Reference Range Interpretation Comments Basophils # (Auto) (test code = 704-7) 0.0 0.0-0.1 [facility] CampusAbsolute Immature Granulocyte (auto 2019-01-11 06:05:00* Test Item Value Reference Range Interpretation Comments Absolute Immature Granulocyte (auto (nenita t code = Absolute Immature Granulocyte (auto) 0.05 0-0.1 [facility] CampusCreatine Kinase [id number] 19:06:00* Test Item Value Reference Range Interpretation Comments Creatine Kinase MB (test code = 25280-9) 1.80 0-5.0 [facility] CampusTroponin [id number] 19:06:00* Test Item Value Reference Range Interpretation Comments Troponin I (test code = NKO8324) 0.001 0-0.300 [facility] CampusCreatine Kygdyh4844-98-64 19:02:00* Test Item Value Reference Range Interpretation Comments Creatine Kinase (test code = 2157-6) 220 29-168 H [facility] CampusUS PELVIS COMPLETE NON [id number] 16:20:00 [facility] [address] [place] [address] Patient Name: SUSANNA KIM MR #: [id number] : 1940 Age/Sex: 78/F Req #: [id number] Adm Physician: ILA SINGH MD Ordered by: KRISTINA BEAL MD Report #: [id number] Location: MED/SURG2 Room/Bed: [facility] Procedure: 1018- 0013 US/US PELVIS COMPLETE NON [...] COPY TO: KRISTINA BEAL MD US ABDOMEN [id number] 16:17:00 [place] [id number] Patient Name: SUSANNA KIM MR #: [id number] : 1940 Age/Sex: 78/F Req #: [id number] Adm Physician: ILA SINGH MD Ordered by: KRISTINA BEAL MD Report #: [id number] Location: MED/SURG2 Room/Bed: [facility] Procedure: 1018- 0012 US/US ABDOMEN COMPLETE Exam [...] COPY TO: KRISTINA BEAL MD Vitamin B12 [id number] 10:21:00* Test Item Value Reference Range Interpretation Comments Vitamin B12 Level (test code = 89481-3) 1226 213-816 H [facility] Thy[facility] [id number] 10:21:00* Test Item Value Reference Range Interpretation Comments Free Thyroxine Index (test code = 20271-0) 1.9182 1.4-3.8 [facility] (T4)2019-01-10 10:21:00* Test Item Value Reference Range Interpretation Comments Thyroxine (T4) (test code = 3026-2) 6.22 4.5-10.9 Our current method for Total T4 is not recommended for use as the only marker fo r evaluating patients for thyroid disorders.[facility]Triiodothyronine (T3) Qixxal5676-74-27 10:21:00* Test Item Value Reference Range Interpretation Comments Triiodothyronine (T3) Uptake (test code = 3050-2) 30.84 22.5 -37.0 [facility] CampusThyroid Stimulating Hormone (TSH) 2019-01-10 10:21:00* Test Item Value Reference Range Interpretation Comments Thyroid Stimulating Hormone (TSH) (test code = 57124-9) 0.731 0.350-4.940 [facility] Hptpk1331-20-85 09:42:00* Test Item Value Reference Range Interpretation Comments Iron Level (test code = 2498-4) 33 50-170 L [facility] Iron Binding Dfvfnqjm0179-51-52 09:42:00* Test Item Value Reference Range Interpretation Comments Total Iron Binding Capacity (test code = 2500-7) 318 261-4 78 [facility]Percent Iron Nsjuvwwvil3263-47-36 09:42:00* Test Item Value Reference Range Interpretation Comments Percent Iron Saturation (test code = 2502-3) 10 15-50 L [facility] CampusTransferrin2019-10-18 09:42:00* Test Item Value Reference Range Interpretation Comments Transferrin (test code = 3034-6) 227 180-382 [facility] CampusCT CHEST [id number] 02:56:00 [facility] [address] [place] [address] Patient Name: SUSANNA KIM MR #: [id number] : 1940 Age/Sex: 78/F Req #: [id number] Adm Physician: Ordered by: GILLES ROGERS MD Report #: [id number] Location: ER Room/Bed: Procedure: 1018 -0002 CT/CT [...] COPY TO: GILLES ROGERS MD B-Type Natriuretic [id number] 01:56:00* Test Item Value Reference Range Interpretation Comments B-Type Natriuretic Peptide (test code = 14346-8) 15.8 0-100 [facility] SINGLE (PORTABLE)2019-01-10 01:46:00 [facility] [address] [place] [address] Patient Name: SUSANNA KIM MR #: [id number] : 1940 Age/Sex: 78/F Req #: [id number] Adm Physician: Ordered by: GILLES ROGERS MD Report #: [id number] Location: ER Room/Bed: Procedure: 1018 -0011 DX/CHEST [...]
[2020-02-25] MEDS ORDERED: ALBUTEROL SULFATE HFA 8GM INHALATION AEROSOL INH PRN (09:45)
[2020-02-25] MEDS ORDERED: DEXAMETHASONE SOD PHOS 10 MG/1 ML VIAL IV ONE (09:45)
--- NOTE | 2020-02-25 09:49 | Emergency Department Note ---
History of Present Illnes History of Present Illness Chief Complaint: COVID PUI History of Present Illness This is a 79 year old female Chief Complaint Comment PATIENT IN FROM HOME WITH COMPLAINTS OF FEVER, COUGH, GENERAL MALAISE, NAUSEA, VOMITING, AND DIARRHEA. PATIENT WITH AUDIBLE WHEEZING NOTED. PATIENT REPORTS HISTORY OF ASTHMA. 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 Required: No Onset (how long ago): day(s) (1) Location: generalized Quality: fever Radiation: Reports non-radiation Severity: mild Onset quality: gradual Duration (how long): day(s) (1) Timing of current episode: constant Progression: worsening Chronicity: new Context: Denies recent illness, Denies recent surgery Relieving factors: none Exacerbating factors: none Associated symptoms: Reports fever/chills, Reports loss of appetite, Reports shortness of breath Treatments prior to arrival: none Past Medical/Family History Physician Review I have reviewed the patient's past medical and family history. Any updates have been documented here. Past Medical History Recent Fever: Yes Clinical Suspicion of Infectio: Yes New/Unexplained Change in Ment: No Past Medical History: Hypertension, Diabetes, Asthma, Hypothyroidism, Cancer, Hyperlipedemia Other Medical History: Uterine cancer Past Surgical History: Cholecysctectomy, Appendectomy, Hysterectomy, Knee Replacement Other Surgery: BILATERAL TOTAL KNEE REPLACEMENT RT SHOULDER REPAIR bladder lift lower back sx Social History Smoking Cessation: Never Smoker Counseling Performed: No Alcohol Use: None Any Illegal Drug Use: No Physically hurt or threatened: No Other Last Tetanus: UTD Any Pre-Existing Lines (PICC,: No Review of Systems Review of Systems Constitutional: Reports as per HPI EENTM: Reports no symptoms Cardiovascular: Reports no symptoms Respiratory: Reports as per HPI Gastrointestinal: Reports as per HPI Genitourinary: Reports no symptoms Musculoskeletal: Reports no symptoms Integumentary: Reports no symptoms Neurological: Reports no symptoms Psychological: Reports no symptoms Endocrine: Reports no symptoms Hematological/Lymphatic: Reports no symptoms Physical Exam Related Data Allergies: Coded Allergies: morphine (Verified Allergy, Severe, HALLUCINATIONS, 04/11/13) Penicillins (Verified Allergy, Intermediate, RASH, 01/15/19) codeine (Verified Allergy, Intermediate, SHAKES, 04/11/13) meperidine HCl (Verified Allergy, Unknown, 04/11/13) Triage Vital Signs Vital Signs Date Time Temp Pulse Resp B/P (MAP) Pulse Ox O2 Delivery O2 Flow Rate FiO2 02/25/20 09:32 98.9 90 24 177/93 94 Room Air Vital signs reviewed: Yes Physical Exam CONSTITUTIONAL Constitutional: Present well-developed, Present well-nourished HENT HENT: Present normocephalic, Present atraumatic, Present oropharynx clear/moist, Present nose normal HENT L/R: Present left ext ear normal, Present right ext ear normal EYES Eyes: Reports PERRL, Reports conjunctivae normal NECK Neck: Present ROM normal PULMONARY Pulmonary: Present effort normal, Present breath sounds normal, Present other (Wheezes) CARDIOVASCULAR Cardiovascular: Present regular rhythm, Present heart sounds normal, Present capillary refill normal, Present normal rate GASTROINTESTINAL Abdominal: Present soft, Present nontender, Present bowel sounds normal GENITOURINARY Genitourinary: Present exam deferred SKIN Skin: Present warm, Present dry MUSCULOSKELETAL Musculoskeletal: Present ROM normal NEUROLOGICAL Neurological: Present alert, Present oriented x 3, Present no gross motor or sensory deficits PSYCHOLOGICAL Psychological: Present mood/affect normal, Present judgement normal Results Laboratory Lab results reviewed: Yes Imaging Imaging results reviewed: Yes Diagnostics Tests Diagnostic test(s) reviewed: Yes Procedures 12 Lead ECG Interpretation ECG Interpretation : Rod Bending Machine Operator: Interpreted by ED physician Date: Feb 25, 2020 Prior ECG tracings: reviewed Rhythm: sinus rhythm Rate: normal QRS axis: normal ST segments normal: Yes T waves normal: Yes Clinical Impression: normal ECG Critical Care Time Total Critical Care Time (min): 34 Time ED Physician saw patient: 09:30 Critcal care necessary due to: respiratory failure Critcal care time spent by me: blood dram for specimens, evaluation patient response to tx, examination of patient, obtaining hx from patient/surrogate, order/perform tx or interventions, re-evaluation of patient condition, review of old charts Assessment & Plan Medical Decision Making MDM 79 y.o F presents for fever, diarrhea, shortness of breath, generalized weakness. No known sick contacts. Initial differential includes coronavirus versus influenza versus pneumonia versus urinary tract infection among other etiologies. Initially oxygen saturations were 84%. Given 6 decadron and albuterol inhaler. After resting O2 sat improved to 96%. Will transfer for COVID + and desaturations with movement. Discussed with Dr. Sexton at [facility] who has accepted the transfer. Reassessment Reassessment time: 09:48 Reassessment No acute distress Assessment & Plan Final Impression: (1) COVID-19 Depart Disposition: TRANS TO OTHER [facility] Last Vital Signs Date Time Temp Pulse Resp B/P (MAP) Pulse Ox O2 Delivery O2 Flow Rate FiO2 02/25/20 09:32 98.9 90 24 177/93 94 Room Air Home Meds Reported Medications Levofloxacin (LEVAQUIN) 500 Mg Tablet, 500 MG PO DAILY for 5 Days, TAB 01/16/19 Vit D3/Folic Acid/B2/B6/B12 (Folgard Tablet) 1 Each Tablet, PO DAILY 01/10/19 Mirabegron (MYRBETRIQ) 50 Mg Tab.er.24h, 50 MG PO DAILY 01/10/19 Losartan Potassium (LOSARTAN POTASSIUM) 100 Mg Tablet, 100 MG PO DAILY, TAB 01/10/19 Aspirin (ASPIR 81) 81 Mg Tablet.dr, 81 MG PO DAILY 05/17/15 Pravastatin Sodium (PRAVASTATIN SODIUM) 20 Mg Tablet, 20 MG PO DAILY 04/11/13 Levothyroxine Sodium (LEVOTHYROXINE SODIUM) 150 Mcg Tablet, 0.125 MCG PO DAILY 04/11/13 Potassium Chloride (KLOR-CON 10) 10 Meq Tablet.er, PO DAILY 04/11/13 Gabapentin (GABAPENTIN) 300 Mg Capsule, 300 MG PO BID 04/11/13 Furosemide (FUROSEMIDE) 40 Mg Tablet, 40 MG PO DAILY 04/11/13 Citalopram Hydrobromide (CITALOPRAM HBR) 20 Mg Tablet, 20 MG PO DAILY 04/11/13 Cilostazol (CILOSTAZOL) 100 Mg Tablet, 100 MG PO BID 04/11/13 Bupropion Hcl (BUPROPION HCL SR) 200 Mg Tablet.er, 200 MG PO DAILY 04/11/13 Medications in the ED Acetaminophen 650 mg ONCE STAT PO ; Start 02/25/20 at 09:35; Stop 02/25/20 at 09:40; Status DC POORNIMA ARNOLD MD Feb 25, 2020 09:49
--- NOTE | 2020-02-25 10:15 | Diagnostic Imaging Report ---
EXAMINATION: CHEST SINGLE (PORTABLE) INDICATION: Cough COMPARISON: Chest are graft 09/12/2019, chest CT 01/10/2019 FINDINGS: LINES/TUBES:EKG leads overlie the chest. LUNGS:The lungs are moderately inflated. There is perihilar fullness and indistinctness of the pulmonary vasculature. PLEURA:No pleural effusion or pneumothorax. MEDIASTINUM:The cardiomediastinal silhouette appears at the upper limits of normal for size. Atherosclerotic calcifications of the thoracic aorta. BONES/SOFT TISSUES:No acute osseous injury. ABDOMEN:No free air under the diaphragm. IMPRESSION: Central pulmonary vascular congestion and mild pulmonary interstitial edema. Signed by: Caren Mccloud MD on 02/25/2020 10:11 AM
[2020-02-25 10:27] LABS: BASOPHILS % 0.3 % (0.0-1.0); EOSINOPHILS % 0.3 % (0.0-6.0); HEMATOCRIT 35.6 % (34.2-44.1); HEMOGLOBIN 11.4 g/dL (12.0-16.0); LYMPHOCYTES # (AUTO) 0.8 (1.0-3.2); MEAN CORPUSCULAR HEMOGLOBIN 31.1 pg (28-32); MEAN CORPUSCULAR VOLUME 97.3 fL (81-99); MONOCYTES # (AUTO) 0.6 (0.2-0.8); MONOCYTES % 15.4 % (4.4-11.3); NEUTROPHILS # (AUTO) 2.3 (2.1-6.9); PLATELET COUNT 154 x10e3/uL (140-360); RED BLOOD COUNT 3.66 x10e6/uL (3.6-5.1); RED CELL DISTRIBUTION WIDTH 13.1 % (11.7-14.4)
[2020-02-25 10:33] LABS: BILIRUBIN,URINE NEGATIVE (NEGATIVE); CLARITY,URINE HAZY (CLEAR); COLOR,URINE YELLOW (YELLOW); KETONES,URINE NEGATIVE (NEGATIVE); LEUKOCYTE ESTERASE ,URINE NEGATIVE (NEGATIVE); NITRITE,URINE NEGATIVE (NEGATIVE); PROTEIN,URINE DIPSTICK NEGATIVE (NEGATIVE); URINE UROBILINOGEN 0.2 mg/dL (0.2 - 1)
[2020-02-25 10:39] LABS: WBC,URINE (MAN) 0-5 /HPF (0-5)
[2020-02-25 10:40] LABS: BACTERIA,URINE FEW /HPF; EPITHELIAL CELLS,URINE MANY /LPF; YEAST,URINE MODERATE
--- NOTE | 2020-02-25 13:44 | NUR ---
REPORT CALLED TO ESTHER ROWAN AT [facility]; [facility] HERE NOW FOR PATIENT
[2020-02-25 13:53] LABS: ALANINE AMINOTRANSFERASE 22 IU/L (0-55); ALBUMIN 3.5 g/dL (3.5-5.0); ALKALINE PHOSPHATASE 116 IU/L (40-150); ANION GAP 13.9 mmol/L (8-16); BLOOD UREA NITROGEN 14 mg/dL (7-26); BUN/CREATININE RATIO 16 (6-25); CALCIUM 8.9 mg/dL (8.4-10.2); CARBON DIOXIDE 29 mmol/L (22-29); CHLORIDE 102 mmol/L (98-107); CREATININE, SERUM 0.86 mg/dL (0.57-1.11); EST GLOMERULAR FILTRATION RATE > 60 ML/MIN (60-); GLUCOSE 88 mg/dL (74-118); POTASSIUM 3.9 mmol/L (3.5-5.1); SODIUM 141 mmol/L (136-145)
== END 2020-02-25 13:49 | disposition other institution (70) ==
LOC: ER 09:33
DX: U07.1 COVID-19 (principal); R06.02 Shortness of breath; R11.2 Nausea with vomiting, unspecified; R53.1 Weakness; R53.81 Other malaise; I10 Essential (primary) hypertension; E11.9 Type 2 diabetes mellitus without complications; E78.5 Hyperlipidemia, unspecified; Z85.42 Personal history of malignant neoplasm of other parts of uterus
CPT/HCPCS: 36415; 71045; 80053; 81001; 83605; 83880; 84484; 85025; 87040; 87086; 87400; 93005; 99285; J1100; U0002

== ENCOUNTER 2020-03-02 12:56 | Emergency (ER) | payer MEDICARE, OTHER ==
[~2020-03-02] VITALS: Ht 149.9 cm; Wt 130.6 kg
[2020-03-02] MEDS ORDERED: AZITHROMYCIN 500MG/NS 250 ML 250 ML IV ONE (13:02)
[2020-03-02] MEDS ORDERED: DEXAMETHASONE SOD PHOS 10 MG/1 ML VIAL IV ONE (13:15)
[2020-03-02 14:16] LABS: BASOPHILS % 0.1 % (0.0-1.0); EOSINOPHILS % 0.1 % (0.0-6.0); HEMATOCRIT 37.2 % (34.2-44.1); LYMPHOCYTES # (AUTO) 0.5 (1.0-3.2); LYMPHOCYTES % 7.2 % (18.0-39.1); MEAN CORPUSCULAR HEMOGLOBIN 31.1 pg (28-32); MEAN CORPUSCULAR HGB CONC 32.3 g/dL (31-35); MEAN CORPUSCULAR VOLUME 96.4 fL (81-99); MONOCYTES # (AUTO) 0.5 (0.2-0.8); MONOCYTES % 6.9 % (4.4-11.3); NEUTROPHILS # (AUTO) 6.4 (2.1-6.9); NEUTROPHILS % 85.2 % (38.7-80.0); PLATELET COUNT 220 x10e3/uL (140-360); RED BLOOD COUNT 3.86 x10e6/uL (3.6-5.1); RED CELL DISTRIBUTION WIDTH 12.9 % (11.7-14.4)
[2020-03-02 14:43] LABS: ALBUMIN 3.3 g/dL (3.5-5.0); ALBUMIN/GLOBULIN RATIO 0.7 (0.8-2.0); ANION GAP 13.3 mmol/L (8-16); CALCIUM 8.8 mg/dL (8.4-10.2); CREATININE, SERUM 0.95 mg/dL (0.57-1.11); POTASSIUM 4.3 mmol/L (3.5-5.1)
== END 2020-03-02 17:43 | disposition other institution (70) ==
LOC: ER 13:01
DX: U07.1 COVID-19 (principal); R09.02 Hypoxemia; R50.9 Fever, unspecified; R06.02 Shortness of breath; E11.65 Type 2 diabetes mellitus with hyperglycemia; I10 Essential (primary) hypertension; E78.5 Hyperlipidemia, unspecified; E03.9 Hypothyroidism, unspecified; Z85.42 Personal history of malignant neoplasm of other parts of uterus; Z96.653 Presence of artificial knee joint, bilateral
CPT/HCPCS: 36415; 71045; 80053; 83880; 85025; 93005; 99284; J0456; J1100